=== PATIENT | male | born 1955 | race Caucasian/White ===

== ENCOUNTER 2020-10-17 13:59 | Emergency (ER) | payer MEDICARE, SELFPAY ==
[2020-10-17 14:06] VITALS: BP 162/104; PULSE 75; RESP 15; TEMP 36.5; O2SAT 98; BMI 30.1
--- NOTE | 2020-10-17 14:52 | ECG_ITS ---
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 Measurements Intervals [place] Rate: 62 P: 111 [place]: 191 QRS: 78 QRSD: 98 T: 55 QT: 405 QTc: 413 Interpretive Statements ELECTRONIC ATRIAL PACEMAKER Compared to ECG 07/15/2014 12:25:38 Sinus rhythm no longer present Electronically Signed On 10-19-2020 8:00:01 CDT by Joe Zacarias M.D. [email or web address] coast veterans health care systemTraversa Therapeuticsselect medical clevel[facility] clinic rehabilitation hospital, beachwoodHero Card Management AS/store/OM/[id number]/[id number]
--- NOTE | 2020-10-17 15:21 | XRR_ITS ---
PROCEDURE INFORMATION: Exam: XR Chest Exam date and time: 10/17/2020 3:44 PM Age: 65 years old Clinical indication: Cough TECHNIQUE: Imaging protocol: XR of the chest. Views: 1 view. COMPARISON: CR Chest 2 views* [id number] 05/24/2016 11:23 AM FINDINGS: Tubes, catheters and devices: Left chest ICD. Lungs: Unremarkable. No consolidation. Pleural spaces: Unremarkable. No pleural effusion. No pneumothorax. Heart/Mediastinum: Unremarkable. No cardiomegaly. Bones/joints: Unremarkable. XR/XR chest 1V portable [id number] IMPRESSION: No acute findings.
--- NOTE | 2020-10-17 15:22 | ED_ITS ---
HPI - General Adult General: Chief complaint: General Medical Stated complaint: FEELING FAINT THEN THREW UP Time Seen by Provider: 10/17/20 15:13 Source: patient, family, RN notes reviewed and old records reviewed Limitations: no limitations History of Present Illness: HPI narrative: This patient is a 65-year-old male who presents to the emergency department for acute dizziness. 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 Patient denies falling or passing out. But he states he felt really felt like he would. Patient states after a few minutes of just rest he is back to normal and feeling okay patient has no complaints at this time. However he is concerned because he does have a history of a pacemaker. We will do medical evaluation treat as needed Onset (ago): hour(s) Pain Consistency: intermittent Associated symptoms: Deny chest pain, dyspnea, headache(s), nausea, rash, palpitations or vomiting Review of Systems General: Reports: 10 or more systems reviewed and unremarkable except in HPI and below Const: Denies: fever(s), chills, body aches or fatigue Eyes: Denies: change in vision or blurry vision ENMT: Denies: throat pain, hoarseness or mouth pain Card: Denies: chest pain or palpitations Resp: Denies: dyspnea GI: Denies: nausea or vomiting : Denies: flank pain, dysuria, urinary frequency, urinary urgency or urinary hesitancy Musc: Denies: neck pain, back pain, extremity pain, extremity swelling, joint pain, joint swelling, joint redness, joint warmth or limited range of motion Skin/Breast: Denies: rash Neuro: Reports: dizziness; Denies: headache(s) Psych: Denies: anxiety or depression PFSH ED PFSH: Medical History Essential hypertension Sick sinus syndrome Social History Smoking and tobacco status: never smoked Alcohol intake: never Physical Exam Const: COMMON NORMALS: no acute distress, average body habitus, patient oriented x3, no limitations, healthy appearing, alert and well nourished HENMT: COMMON NORMALS: normocephalic, atraumatic, hearing grossly normal bilaterally, external ears normal, EAC's normal, TM's normal bilaterally, Normal external nose present, Normal nasal mucous membranes and turbinates present, moist oral mucous membranes, oropharynx normal, dentition normal and gingiva normal HEAD & SCALP: normocephalic and atraumatic NOSE: Normal external nose present and Normal nasal mucous membranes and turbinates present EXTERNAL EAR: Yes external ears normal EXTERNAL AUDITORY CANAL: EAC's normal TYMPANIC MEMBRANE: TM's normal bilaterally Neck/C-Spine: COMMON NORMALS: full ROM, no lymphadenopathy, supple, no meningeal signs, no JVD, Thyroid normal and No carotid bruits THYROID: Thyroid normal Chest: COMMONS NORMALS: normal inspection of the chest, normal palpation of entire chest wall, normal inspection of the breasts and normal palpation of the breasts Breast/axilla inspection: Yes normal inspection of the breasts BREAST/AXILLA PALPATION: Yes normal palpation of the breasts Resp: COMMON NORMALS: normal respiratory effort, No retractions, No use of accessory muscles, clear to auscultation bilaterally and percussion normal AUSCULTATION: clear to auscultation bilaterally PERCUSSION: percussion normal Cardio: COMMON NORMALS: no JVD, regular rate, regular rhythm, S1 normal heart sound present, S2 normal heart sound present, No gallops present (Cardio), No clicks present (Cardio), No murmurs present (Cardio), No rub (Cardio) and Peripheral pulses 2+ throughout RATE: regular rate RHYTHM: regular rhythm HEART SOUNDS: S1 normal heart sound present and S2 normal heart sound present PERIPHERAL PULSES: Peripheral pulses 2+ throughout GI: COMMON NORMALS: Normal to inspection, nondistended, normoactive bowel sounds present, Soft to palpation, non-tender, No hepatosplenomegaly present, no masses and no bruits PALPATION: Yes Soft to palpation and Yes No hepatosplenomegaly present : COMMON NORMALS: Yes no CVA tenderness BLADDER/KIDNEY EXAM: Yes no CVA tenderness Back/Pelvis: COMMON NORMALS: no CVA tenderness, thoracic and lumbar spine normal to inspection, no thoracic nor lumbar tenderness, thoraco-lumbar ROM normal and straight leg raise negative bilaterally Extremity: COMMON NORMALS: normal to inspection, full ROM, capillary refill normal, no joint enlargement, no clubbing, cyanosis or edema, no calf tenderness and no pedal edema Neuro: COMMON NORMALS: patient oriented x3 SENSORIUM/ORIENTATION: Yes alert MENINGEAL SIGNS: Yes no meningeal signs Course Reevaluation(s): Reevaluation #1: Negative evaluation in the emergency department. Patient still has no complaints. Patient describes orthostatic dizziness. Patient given instructions encourage p.o. fluids continue home medications and follow-up with PCP. Patient states understanding he was discharged home. Time: 17:37 Vital Signs: Vital signs: Vital Signs Temperature 97.7 F 10/17/20 14:06 Pulse Rate 64 10/17/20 16:55 Respiratory Rate 15 10/17/20 16:01 Blood Pressure 142/90 10/17/20 16:55 Pulse Oximetry 97 10/17/20 16:01 MDM - General Adult MDM Narrative: Medical decision making narrative: Patient presented to the emergency department description similar to orthostasis. Was bending over in a flower bed and got up and became profoundly dizzy sweating and vomited. Patient denies loss of consciousness. Patient had complete resolution of symptoms prior to arrival and continues to have normal evaluation with no symptoms. Differential Diagnosis: Differential Diagnosis: Orthostatic dizziness. Vertigo. Medical Records: Attestation: I reviewed the patient's medical records. Lab Data: Attestation: I reviewed the patient's lab results. Labs: Lab Results 10/17/20 10/17/20 10/17/20 Range/Units 15:55 15:55 15:55 WBC 9.6 (4.0-10.0) 10^3/ uL RBC 5.49 H (4.1-5.3) 10^6/u L Hgb 17.1 H (11.7-16.6) g/dL Hct 50.3 (42.0-52.0) % MCV 91.6 (80-94) fL MCH 31.1 (28.0-34.0) pg MCHC 34.0 (30.0-36.0) g/dL RDW 13.1 (12.1-15.1) % Plt Count 184 (130-400) 10^3/c mm MPV 9.7 (7.4-10.4) fL Neut % (Auto) 72.7 % Lymph % (Auto) 17.7 % [place] % (Auto) 7.4 % Eos % (Auto) 1.5 % Baso % (Auto) 0.4 % Neut # (Auto) 6.96 (1.8-7.7) 10^3/u L Lymph # (Auto) 1.7 (0.8-4.8) 10^3/u L [place] # (Auto) 0.7 (0.2-0.9) 10^3/u L Eos # (Auto) 0.1 (0.0-0.8) 10^3/u L Baso # (Auto) 0.0 (0.0-0.1) 10^3/u L Nucleated RBC % (a uto) 0 % Nucleated RBCs # 0.0 /100WBC Sodium 140 (136-145) mmol/L Potassium 3.9 (3.5-5.1) mmol/L Chloride 104 (98-107) mmol/L Carbon Dioxide 25 (22-29) mmol/L Anion Gap 14.9 (5-19) BUN 12 (8-23) mg/dL Creatinine 1.2 (0.7-1.2) mg/dL GFR Calculation 60.8 L (90-130) mL/min Glucose 98 (65-115) mg/dL Calculated Osmolal ity 290 (285-295) mOsm/k g Calcium 9.2 (8.5-10.5) mg/dL Total Bilirubin 2.0 H (0.15-1.2) mg/dL AST 30 (0-40) U/L ALT 60 H (0-41) U/L Alkaline Phosphata se 93 (40-130) IU/L Troponin T Baselin e 7 (0-15) ng/L Total Protein 7.7 (6.6-8.7) g/dL Albumin 4.5 (3.5-5.2) g/dL Globulin 3.2 (1.3-4.6) g/dL Lipase 22 (13-60) U/L Urine Color (Yellow) Urine Appearance (CLEAR) Urine pH (5-7) Ur Specific Gravit y (1.005-1.030) Urine Protein (Negative) Urine Glucose (UA) (Normal) Urine Ketones (Negative) Urine Blood (Negative) Urine Nitrate (Negative) Urine Bilirubin (Negative) Prot Sulfosalicyli c Acd Urine Urobilinogen (Negative) mg/dL Ur Leukocyte Adore ase (Negative) Urine RBC (0-2) /hpf Urine WBC (0-5) /hpf Ur Squamous Epith Cells (0-5) /hpf Amorphous Sediment Urine Bacteria (NONE) /hpf Hyaline Casts /lpf Urine Mucus /hpf 10/17/20 10/17/20 Range/Units 16:20 16:20 WBC (4.0-10.0) 10^3/ uL RBC (4.1-5.3) 10^6/u L Hgb (11.7-16.6) g/dL Hct (42.0-52.0) % MCV (80-94) fL MCH (28.0-34.0) pg MCHC (30.0-36.0) g/dL RDW (12.1-15.1) % Plt Count (130-400) 10^3/c mm MPV (7.4-10.4) fL Neut % (Auto) % Lymph % (Auto) % [place] % (Auto) % Eos % (Auto) % Baso % (Auto) % Neut # (Auto) (1.8-7.7) 10^3/u L Lymph # (Auto) (0.8-4.8) 10^3/u L [place] # (Auto) (0.2-0.9) 10^3/u L Eos # (Auto) (0.0-0.8) 10^3/u L Baso # (Auto) (0.0-0.1) 10^3/u L Nucleated RBC % (a uto) % Nucleated RBCs # /100WBC Sodium (136-145) mmol/L Potassium (3.5-5.1) mmol/L Chloride (98-107) mmol/L Carbon Dioxide (22-29) mmol/L Anion Gap (5-19) BUN (8-23) mg/dL Creatinine (0.7-1.2) mg/dL GFR Calculation (90-130) mL/min Glucose (65-115) mg/dL Calculated Osmolal ity (285-295) mOsm/k g Calcium (8.5-10.5) mg/dL Total Bilirubin (0.15-1.2) mg/dL AST (0-40) U/L ALT (0-41) U/L Alkaline Phosphata se (40-130) IU/L Troponin T Baselin e (0-15) ng/L Total Protein (6.6-8.7) g/dL Albumin (3.5-5.2) g/dL Globulin (1.3-4.6) g/dL Lipase (13-60) U/L Urine Color Dark yellow Cancelled (Yellow) Urine Appearance Clear Cancelled (CLEAR) Urine pH 5 Cancelled (5-7) Ur Specific Gravit y 1.025 Cancelled (1.005-1.030) Urine Protein Trace Cancelled (Negative) Urine Glucose (UA) Norm Cancelled (Normal) Urine Ketones 1+ H Cancelled (Negative) Urine Blood Neg Cancelled (Negative) Urine Nitrate Negative Cancelled (Negative) Urine Bilirubin 1+ H Cancelled (Negative) Prot Sulfosalicyli c Acd Cancelled Urine Urobilinogen Norm Cancelled (Negative) mg/dL Ur Leukocyte Adore ase Negative Cancelled (Negative) Urine RBC None (0-2) /hpf Urine WBC 0-4 H (0-5) /hpf Ur Squamous Epith Cells None (0-5) /hpf Amorphous Sediment Not Reportable Urine Bacteria Trace (NONE) /hpf Hyaline Casts 5-10 H /lpf Urine Mucus 2+ /hpf Imaging Data^: CXR: Attestation: I personally reviewed and interpreted this imaging study as follows: Radiologist's impression: IMPRESSION: No acute findings. EKG Data^: EKG 1: Attestation: I personally reviewed and interpreted this EKG as follows: EKG interpretation date: 10/17/20 EKG interpretation time: 15:55 Prior EKG tracings: not available for review Interpretation: Paced rhythm heart rate 62 nondiagnostic Computer generated interpretation: Chest X-Ray 10/17/20 15:21 IMPRESSION: No acute findings. Discharge Plan Discharge Patient Disposition: Home Clinical Impression: Orthostatic dizziness Condition: Stable Prescriptions: No Action omeprazole 20 mg capsule,delayed release(DR/EC) 20 mg PO DAILY RF: 0 acetaminophen [Tylenol 8 Hour] 650 mg tablet extended release 650 mg PO Q12H PRN (Reason: fever or pain) RF: 0 Zyrtec 10 mg capsule 10 mg PO DAILY RF: 0 atorvastatin 40 mg tablet 40 mg PO EVERY OTHER DAY RF: 0 nystatin-triamcinolone Cream 1 applic topical DAILY PRN (Reason: Skin Irritation) RF: 0 phenazopyridine [Pyridium] 100 mg tablet 100 mg PO TID PRN (Reason: urinary pain) RF: 0 Discharge Orders: Discharge ED (Routine); Ordered 10/17/20 Ordered By: Amadeo Martinez Referrals: Jolanta Dupont MD [Primary Care Provider] - Discharge Diet: Advance as tolerated Discharge Activity: Resume usual activity Patient Instructions: Opioid Safety Activity Restrictions/Additional Instructions: Patient given instructions encourage p.o. fluids continue home medications and follow-up with PCP Coding Level of Care Code ED Enrollment Clerk for Chg Fwd Exam Comprehensive
[2020-10-17 16:01] VITALS: BP 151/99; PULSE 61; RESP 15; O2SAT 97
[2020-10-17 16:08] LABS: Basophils % 0.4 %; Eosinophils # 0.1 10^3/uL (0.0-0.8); Eosinophils % 1.5 %; Hematocrit 50.3 % (42.0-52.0); Hemoglobin 17.1 g/dL (11.7-16.6); Lymphocytes # 1.7 10^3/uL (0.8-4.8); Lymphocytes % 17.7 %; Mean Corpuscular Hemoglobin 31.1 pg (28.0-34.0); Mean Corpuscular Volume 91.6 fL (80-94); Mean Platelet Volume 9.7 fL (7.4-10.4); Monocytes # 0.7 10^3/uL (0.2-0.9); Monocytes % 7.4 %; Neutrophils # 6.96 10^3/uL (1.8-7.7); Neutrophils % 72.7 %; Nucleated Red Blood Cells % 0 %; Platelet Count 184 10^3/cmm (130-400); Red Blood Count 5.49 10^6/uL (4.1-5.3); Red Cell Distribution Width 13.1 % (12.1-15.1); White Blood Count 9.6 10^3/uL (4.0-10.0)
[2020-10-17 16:25] LABS: Alanine Aminotransferase 60 U/L (0-41); Albumin Level 4.5 g/dL (3.5-5.2); Alkaline Phosphatase 93 IU/L (40-130); Anion Gap 14.9 (5-19); Aspartate Amino Transferase 30 U/L (0-40); Blood Urea Nitrogen 12 mg/dL (8-23); Calcium 9.2 mg/dL (8.5-10.5); Carbon Dioxide 25 mmol/L (22-29); Chloride 104 mmol/L (98-107); Creatinine Clr Calc Pharmacy 75.3813; Globulin 3.2 g/dL (1.3-4.6); Glomerular Filtration Rate 60.8 mL/min (90-130); Glucose 98 mg/dL (65-115); Lipase 22 U/L (13-60); Osmolality Calculated 290 mOsm/kg (285-295); Potassium 3.9 mmol/L (3.5-5.1); Sodium 140 mmol/L (136-145); Total Protein 7.7 g/dL (6.6-8.7)
[2020-10-17] MEDS: sodium chloride 0.9% 500 ML IV (16:25)
[2020-10-17 16:26] LABS: Troponin(5th) Baseline 7 ng/L (0-15)
[2020-10-17 16:46] LABS: Add Urine Microscopic? YES; Bilirubin Urine 1+ (Negative); Blood Urine Neg (Negative); Glucose Urine UA Norm (Normal); Ketones Urine 1+ (Negative); Leukocyte Esterase Urine Negative (Negative); Nitrate Urine Negative (Negative); Protein Urine Trace (Negative); Specific Gravity, Urine 1.025 (1.005-1.030); Urine Appearance Clear (CLEAR); Urine Color Dark Yellow (Yellow); Urobilinogen Urine Norm (Negative); pH Urine 5 (5-7)
[2020-10-17 16:47] LABS: Add Urine Culture? No; Bacteria Urine TRACE /hpf; Mucus Urine 2+ /hpf; WBC Urine 0-4 /hpf (0-5)
[2020-10-17 16:55] VITALS: BP 142/90; BP 148/96; BP 159/102; PULSE 63; PULSE 64; PULSE 73
[2020-10-17 17:57] VITALS: BP 160/108; PULSE 84; RESP 16; O2SAT 96
== END 2020-10-17 17:58 | disposition home or self-care (01) ==
PROVIDERS: Nurse Practitioner Family; Emergency Provider Emergency Medicine; PCP Internal Medicine Cardiovascular Disease
DX: R42 Dizziness and giddiness (principal); I10 Essential (primary) hypertension
CPT/HCPCS: 71045; 80053; 81001; 83690; 84484; 85025; 93005; 96360; 99284; J7040

== ENCOUNTER 2020-11-25 16:45 | Inpatient (IN) | payer MEDICARE, SELFPAY ==
[2020-11-25] VITALS (15 sets, daily range): BP systolic 98–165; BP diastolic 60–99; PULSE 60–102; RESP 10–22; TEMP 35.8–36.6; O2SAT 92–99; BMI 29.9
--- NOTE | 2020-11-25 17:55 | XRR_ITS ---
PROCEDURE INFORMATION: Exam: XR Chest Exam date and time: 11/25/2020 5:55 PM Age: 65 years old Clinical indication: Pain; Left-sided; Prior surgery; Surgery type: Pace maker; Additional info: Left sided chest pain/tightness x yesterday. TECHNIQUE: Imaging protocol: XR of the chest. Views: 1 view. Total images: 1 COMPARISON: CR XR chest 1V portable [id number] 10/17/2020 3:35 PM FINDINGS: Tubes, catheters and devices: Pacemaker. Lungs: No visible active interstitial or alveolar airspace disease. Pleural spaces: Unremarkable. No pleural effusion. No pneumothorax. Heart/Mediastinum: Cardiac structures and configuration unremarkable for age and stable. Bones/joints: Unremarkable. XR/XR chest 1V portable [id number] IMPRESSION: Nonacute.
--- NOTE | 2020-11-25 17:55 | ECG_ITS ---
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 Measurements Intervals [place] Rate: 63 P: 116 MD: 188 QRS: 42 QRSD: 89 T: 15 QT: 378 QTc: 388 Interpretive Statements ELECTRONIC ATRIAL PACEMAKER ABNORMAL RHYTHM ECG Compared to ECG 10/17/2020 15:55:16 No significant changes Electronically Signed On 11-26-2020 22:59:52 CDT by Sherlyn Donald M.D. https://[employer]Tactonic Technologiesh. c. watkins memorial hospitalESC Companyohiohealth southeastern medical centerNegevtech/store/NU/[id number] f
--- NOTE | 2020-11-25 18:48 | ED_ITS ---
HPI - Chest Pain General: Chief Complaint: Chest Pain Stated Complaint: chest pain Time Seen by Provider: 11/25/20 18:22 Source: patient Mode of arrival: ambulatory Limitations: no limitations History of Present Illness: HPI narrative: 65-year-old male states he been having exertional chest pain over the last 2 days. States today is outside working and started having pain in his left chest with radiation to his left arm that was a 5 out of 10. States that once he rests his pain will go away. He states that when he walked back to the room he started having pain again but it since subsided and he is now pain-free. Denies any shortness of breath. MD complaint: chest pain Associated symptoms: Deny abdominal pain, dyspnea, fever(s), nausea or vomiting Review of Systems Const: Denies: fever(s), chills, body aches or change in appetite Eyes: Denies: blurry vision or eye discomfort ENMT: Denies: throat pain or dental pain Card: Reports: chest pain Resp: Denies: dyspnea GI: Denies: abdominal pain, nausea, vomiting or diarrhea : Denies: dysuria Musc: Denies: neck pain or back pain Skin/Breast: Denies: rash Neuro: Denies: headache(s) Psych: Denies: depression [place]/Lymph: Denies: easy bruising All/Imm: Denies: urticaria PFSH ED PFSH: Medical History Essential hypertension Sick sinus syndrome Social History Smoking and tobacco status: never smoked Alcohol intake: never Physical Exam Const: COMMON NORMALS: no acute distress, patient oriented x3 and healthy appearing HENMT: COMMON NORMALS: normocephalic and atraumatic HEAD & SCALP: normocephalic and atraumatic Eye: COMMON NORMALS: Equal, round and reactive pupils present and EOMs intact bilaterally PUPIL: Yes Equal, round and reactive pupils present Neck/C-Spine: COMMON NORMALS: full ROM and supple Chest: COMMONS NORMALS: normal inspection of the chest and normal palpation of entire chest wall Resp: COMMON NORMALS: normal respiratory effort, No retractions, No use of accessory muscles and clear to auscultation bilaterally AUSCULTATION: clear to auscultation bilaterally Cardio: COMMON NORMALS: regular rate, regular rhythm and No murmurs present (Cardio) RATE: regular rate RHYTHM: regular rhythm GI: COMMON NORMALS: Normal to inspection, nondistended, normoactive bowel sounds present, Soft to palpation, non-tender and no masses PALPATION: Yes So ft to palpation Extremity: COMMON NORMALS: normal to inspection and full ROM Neuro: COMMON NORMALS: patient oriented x3, moves all extremities and no focal motor deficits Psych: COMMON NORMALS: mental status grossly normal, Normal thought process present and cooperative THOUGHT PROCESS: Normal thought process present Skin: COMMON NORMALS: no rashes or lesions noted and no wounds GENERAL SKIN EXAM: no rashes or lesions noted Course Vital Signs: Vital signs: Vital Signs Temperature 97.9 F 11/25/20 16:58 Pulse Rate 60 11/25/20 19:58 Respiratory Rate 22 H 11/25/20 19:58 Blood Pressure 98/60 11/25/20 19:58 Pulse Oximetry 99 11/25/20 19:58 MDM - Chest Pain MDM Narrative: Medical decision making narrative: Patient presents with chest pain. When I originally saw him he was pain-free and resting comfortably and his initial EKG was normal. Starting at 730's started complaint of chest pain and was having nausea and diaphoresis. I had nurse repeat EKG that is changed from previous EKG and now has ST elevation in V2 and V3 and a STEMI alert was called. Dr. 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 Patient given nitro and morphine his pain is improved but now a 3 out of 10. Patient given heparin and Plavix as well. Lab Data: Labs: Lab Results 11/25/20 11/25/20 11/25/20 Range/Units 19:21 19:21 19:21 WBC 5.7 (4.0-10.0) 10^3/ uL RBC 5.31 H (4.1-5.3) 10^6/u L Hgb 16.6 (11.7-16.6) g/dL Hct 49.1 (42.0-52.0) % MCV 92.5 (80-94) fL MCH 31.3 (28.0-34.0) pg MCHC 33.8 (30.0-36.0) g/dL RDW 13.1 (12.1-15.1) % Plt Count 197 (130-400) 10^3/c mm MPV 9.6 (7.4-10.4) fL Neut % (Auto) 49.4 % Lymph % (Auto) 37.6 % [place] % (Auto) 8.3 % Eos % (Auto) 3.4 % Baso % (Auto) 1.1 % Neut # (Auto) 2.80 (1.8-7.7) 10^3/u L Lymph # (Auto) 2.1 (0.8-4.8) 10^3/u L [place] # (Auto) 0.5 (0.2-0.9) 10^3/u L Eos # (Auto) 0.2 (0.0-0.8) 10^3/u L Baso # (Auto) 0.1 (0.0-0.1) 10^3/u L Nucleated RBC % (a uto) 0 % Nucleated RBCs # 0.0 /100WBC Sodium 138 (136-145) mmol/L Potassium 4.3 (3.5-5.1) mmol/L Chloride 104 (98-107) mmol/L Carbon Dioxide 23 (22-29) mmol/L Anion Gap 15.3 (5-19) BUN 16 (8-23) mg/dL Creatinine 1.1 (0.7-1.2) mg/dL GFR Calculation 67.2 L (90-130) mL/min Glucose 95 (65-115) mg/dL Calculated Osmolal ity 287 (285-295) mOsm/k g Calcium 9.1 (8.5-10.5) mg/dL Total Bilirubin 1.3 H (0.15-1.2) mg/dL AST 32 (0-40) U/L ALT 58 H (0-41) U/L Alkaline Phosphata se 92 (40-130) IU/L Troponin T Baselin e 53 H (0-15) ng/L Total Protein 7.3 (6.6-8.7) g/dL Albumin 4.5 (3.5-5.2) g/dL Globulin 2.8 (1.3-4.6) g/dL Imaging Data^: CXR: Attestation: I personally reviewed and interpreted this imaging study as follows: My impression: no acute abnormality EKG Data^: EKG 1: Attestation: I personally reviewed and interpreted this EKG as follows: EKG interpretation date: 11/25/20 EKG interpretation time: 17:03 Interpretation: paced hr [address] or t wave abnormalities qrs 89 qtc 385 EKG 2: Attestation: I personally reviewed and interpreted this EKG as follows: EKG interpretation date: 11/25/20 EKG interpretation time: 19:32 Interpretation: paced rhyhthm hr 60 st elevation in v1 and v2 Critical Care Time Critical Care Time: Critical Care Time: Yes Total Critical Care Time: 35 Attestation: This case had a high probability of a clinically significant, sudden, or life threatening deterioration of this patient's condition which required my full and direct attention, intervention and personal management. Discharge Plan Discharge Patient Disposition: Admitted As Inpatient Clinical Impression: ST elevation myocardial infarction (STEMI) Qualifiers: Involved coronary artery: unspecified coronary artery Qualified Code(s): I21.3 - ST elevation (STEMI) myocardial infarction of unspecified site Condition: Stable Coding Level of Care Code ED Shingle Inspector for Chg Fwd Exam Comprehensive
[2020-11-25] MEDS: aspirin 81 mg Chew Tablet 324 MG PO (19:16)
[2020-11-25] MEDS: nitroglycerin 0.4 mg sublingual Tablet SUBLINGUAL (19:27)
[2020-11-25] MEDS: ondansetron 2 mg/ML SDV 2 mL 4 MG IVP (19:27)
[2020-11-25 19:28] LABS: Basophils # 0.1 10^3/uL (0.0-0.1); Basophils % 1.1 %; Eosinophils # 0.2 10^3/uL (0.0-0.8); Eosinophils % 3.4 %; Hematocrit 49.1 % (42.0-52.0); Hemoglobin 16.6 g/dL (11.7-16.6); Lymphocytes # 2.1 10^3/uL (0.8-4.8); Lymphocytes % 37.6 %; Mean Corpuscular HGB Conc 33.8 g/dL (30.0-36.0); Mean Corpuscular Hemoglobin 31.3 pg (28.0-34.0); Mean Corpuscular Volume 92.5 fL (80-94); Mean Platelet Volume 9.6 fL (7.4-10.4); Monocytes # 0.5 10^3/uL (0.2-0.9); Monocytes % 8.3 %; Neutrophils % 49.4 %; Nucleated Red Blood Cells % 0 %; Platelet Count 197 10^3/cmm (130-400); Red Blood Count 5.31 10^6/uL (4.1-5.3); Red Cell Distribution Width 13.1 % (12.1-15.1); White Blood Count 5.7 10^3/uL (4.0-10.0)
[2020-11-25 19:44] LABS: Alanine Aminotransferase 58 U/L (0-41); Albumin Level 4.5 g/dL (3.5-5.2); Alkaline Phosphatase 92 IU/L (40-130); Anion Gap 15.3 (5-19); Aspartate Amino Transferase 32 U/L (0-40); Blood Urea Nitrogen 16 mg/dL (8-23); Calcium 9.1 mg/dL (8.5-10.5); Carbon Dioxide 23 mmol/L (22-29); Chloride 104 mmol/L (98-107); Globulin 2.8 g/dL (1.3-4.6); Glomerular Filtration Rate 67.2 mL/min (90-130); Glucose 95 mg/dL (65-115); Osmolality Calculated 287 mOsm/kg (285-295); Potassium 4.3 mmol/L (3.5-5.1); Sodium 138 mmol/L (136-145); Total Bilirubin 1.3 mg/dL (0.15-1.2); Total Protein 7.3 g/dL (6.6-8.7)
[2020-11-25 19:45] LABS: Troponin(5th) Baseline 53 ng/L (0-15)
--- NOTE | 2020-11-25 19:52 | XACV_ITS ---
Ht: 183 cm Wt: 100 kg BSA: 2.28 m2 Gender: Male : 1955 Exam Priority: Routine Procedure(s): Procedure Description: Diagnostic procedure Procedure Description: PCI procedure Procedure Description: Drug Eluting Coronary Stent Procedure Description: PTCA Procedure Description: Miscellaneous Procedure Description: ACT Procedure Description: Coronary Angiography Diagnostic Cath Status: Emergency Diagnostic Findings * Circumflex has no significant disease. * Right Coronary Artery has minor luminal irregularities. * Mid Left Anterior Descending: total thrombotic occlusion, ROMAINE: [address] for acute ST elevation PA. * Left Main has no disease. * Coronary angiography shows right dominance. PCI Status: Emergency PCI Indication: STEMI - Immediate PCI for STEMI Interventional Findings * Procedure details: We engaged left main artery with a XB 3.5 guide catheter. IV heparin was administered to maintain an ACT above 250 seconds. A 0.014 run-through guidewire was used to cross the stenosis and was placed in distal LAD. A 2.5 x 12 mm semicompliant balloon was used to predilate the stenosis in the mid LAD. This was followed by placement of 3.0 x 30 mm resolute [place] drug-eluting stent. There was some haziness noted at the distal edge of the stent. We placed a second stent measuring 3.0x12mm overlapping with the first one. We postdilated the proximal part of stent with 3.5 x 6 mm NC balloon. At this time final angiogram was performed that showed excellent stent expansion, ROMAINE-3 flow and no residual stenosis. Guidewire and guide catheter were removed. Angioseal was deployed to achieve hemostasis. Patient left the Order Picker/Assembler in a stable condition. * Mid Left Anterior Descendin% stenosis treated with a AB TREK 2.50X12 RX BALLOON, MDT R CESIA 3.0X30 ED, MDT R CESIA 3.0X12 ED, and MDT CAITLYN EUPHORA RX [id number] BALLOON. 0% residual stenosis, ROMAINE: 3 flow. Conclusions 1. There is total thrombotic occlusion of mid LAD. This was the culprit for the acute STEMI. 2. Mid Left Anterior Descending was treated with a Balloon, Drug Eluting Stent, Drug Eluting Stent, and Balloon. Recommendations * Transfer to ICU. * Aspirin and plavix for atleast 1 year. * High intensity statin therapy. * Cardiac rehab referral. * Outpatient cardiology follow up in 4 weeks. Interventional RX Recommendation: PCI w/o planned CABG Diagnostic RX Recommendation: PCI w/o planned CABG Anticoagulation: Heparin Pressures Phase:Rest AO : 137 / 88 ( 110 ) @ 3:57:51 PM 119 / 80 ( 99 ) @ 3:57:51 PM Clinical Evaluation EBL: 5mL-10mL Procedural Details Procedure Consent Obtained. Pre-Procedure Time Out. Identified patient by full name and date of as verbalized by the patient/guarantor. Does the consent match the physician's order: N/A Emergent. Accurate & Complete Informed Consent: N/A Emergent. Inpatient/Outpatient History & Physical on Chart: N/A Emergent. If H&P is completed, is and addenduem needed: N/A Emergent; If yes, is the addendum complete: N/A Emergent. Visualize and Verify Site with Patient/Guarantor: N/A. Relevant Radiology Images available: N/A Emergent. Pre-op teaching completed and patient verbalized understanding. The risks, benefits, and alternatives of sedation and/or procedure were discussed by physician. The patient agrees to continue. Procedure started. [facility] Clinical Fraility Score: 3: Managing Well. Order Picker/Assembler Indications: ACS <= 24 hours. Chest Pain Symptom Assessment: Typical Angina Symptoms. Cardiovascular Instability: Yes, if yes, Hemodynamic Instability. Correct patient, site and procedure confirmed by cath team. PERRLA. Strong, equal hand harvesting supervisor bilaterally. Lungs clear x 5 lobes. IV Site on Arrival: 18 gauge in the right anticubital. IV Site on Arrival: 20 gauge in the left anticubital. Oxygen started at 3liters/min via nasal canula. bilateral groins was prepped with chloroprep then draped in the usual sterile fashion. Physician arrived. Physician scrubbed in. Immediate Pre-Procedure Time Out. Correct Patient: Yes; Correct Procedure: Yes; Correct Site: Yes; Correct Patient Position: Yes; Correct Supplies: Yes; Dried Flammable Prep: Yes; Blood Products Available: N/A;. Lidocaine 1% infiltrated to the right groin. Arterial access obtained with micropuncture set. Inventory is CRD 6 FR XB 3.5 GUIDE. 6 albanian XB 3.5 guide catheter was inserted over the wire. Pt arrived with AP pads on. Runthrough guidewire was advanced through the guide catheter to lesion in the prox LAD. Inflation number : 1 A AB TREK 2.50X12 RX BALLOON was prepped and advanced across the Mid LAD , then inflated to 12 FER for 0:17 seconds. Inflation number: 2 The AB TREK 2.50X12 RX BALLOON was reinflated across the Mid LAD, to 12 FER for 0:13 seconds. Balloon out. Results checked. Inflation Number : 3 A MDT R CESIA 3.0X30 ED -Lot Number# [id number] exp date 03/15/2022 was prepped and advanced across the Mid LAD. The stent was deployed at 12 FER for 0:33 seconds. 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 Stent balloon out over wire. Results checked. Inflation Number : 4 A MDT R CESIA 3.0X12 ED -Lot Number# [id number] exp date 08/10/2022 was prepped and advanced across the Mid LAD. The stent was deployed at 12 FER for 0:17 seconds. Stent balloon out over wire. Inflation number : 5 A MDT NC EUPHORA RX [id number] BALLOON was prepped and advanced across the Mid LAD , then inflated to 12 FER for 0:18 seconds. Inflation number: 6 The MDT NC EUPHORA RX [id number] BALLOON was reinflated across the Mid LAD, to 12 FER for 0:19 seconds. Inflation number: 7 The MDT NC EUPHORA RX [id number] BALLOON was reinflated across the Mid LAD, to 12 FER for 0:23 seconds. Balloon out. Results checked. Wire out. Guide catheter out. A CRD 5F JR4 Diagnostic Catheter was advanced over the wire and used for Left coronary angiography. Multiple views taken of right coronary artery. Catheter removed over the standard wire. A Right femoral angiogram was performed to determine safe placement of closure device. ACT drawn. Results 233 seconds. Therapeutic limits - pre-heparin administration 90-150 seconds and monitoring heparin during a vascular procedure >250 seconds. A Angio-Seal VIP ([place]) was successful obtaining hemostatsis at the Right Femoral artery insertion site. Angioseal placed without complications. No signs or symptoms of hematoma noted. Sterile dressing applied per usual sterile fashion. Post Procedure: Pulses reassessed and unchanged. Aggrastat stopped at this time. PERRLA. Strong, equal hand harvesting supervisor bilaterally. No VTE prophylaxis required. Medication's Wasted: Lidocaine 1% = 5 mL. Medication's Wasted: Nitro = 49.8 mg. Total IV fluids: 75 mL. Contrast type used: Omnipaque 300 mgI/mL, 500 mL bottle. Post-op diagnosis: stemi. Complications: none. Estimated blood loss: 5mL-10mL. Manual pressure held at access site. Procedure completed. Patient transferred by bed to ICU. Vital chart was stopped. Access Site Site: Right Femoral artery Sheath Size: 6 Fr Hemostasis Method: Angio-Seal VIP ([place]) Hemostasis Success: Successful Procedure Medications Start: 8:18 PM Stop: 8:18 PM Medication: Heparin Amount: 6000 units Route: I.V. Start: 8:15 PM Stop: 8:15 PM Medication: Versed Amount: 1 mg Route: I.V. Start: 8:15 PM Stop: 8:15 PM Medication: Fentanyl Amount: 25 mcg Start: 8:25 PM Stop: 8:25 PM Medication: Aggrastat 12.5 mg/250 mL Amount: 50 ml Route: I.V. bolus Start: 8:26 PM Stop: 8:26 PM Medication: Aggrastat 12.5 mg/250 mL Amount: 18 ml/hr Route: I.V. drip Start: 8:29 PM Stop: 8:29 PM Medication: Versed Amount: 1 mg Route: I.V. Start: 8:38 PM Stop: 8:38 PM Medication: Nitrogylcerin Amount: 200 mcg Route: I.C. Start: 8:40 PM Stop: 8:40 PM Medication: Fentanyl Amount: 25 mcg Route: I.V. Start: 8:45 PM Stop: 8:45 PM Medication: Fentanyl Amount: 25 mcg Route: I.V. I, the attending physician, have reviewed and verified all procedure medications. Yes, all medications given per verbal order History/Risk Factors Hypertension: No Dyslipidemia: No Peripheral Arterial Disease (PAD): No Myocardial Infarction (PA): No Obesity: No Renal Disease: No Prior Interventions PCI: No CABG: No Valve Surgery: No Report Signatures Finalized by Joe Zacarias MD on 12/03/2020 07:59 PM
--- NOTE | 2020-11-25 19:55 | ECG_ITS ---
[facility] Test Date: 2020-11-25 Pat Name: Ray Lopez Department: Room: ICU07 Gender: Male Advisory Intern: : 1955 Requested By: Hugo Blevins Order Number: [id number] Amanda MD: Sherlyn Donald M.D. Measurements Intervals [place] Rate: 60 P: 110 OR: 191 QRS: 58 QRSD: 92 T: 2 QT: 426 QTc: 428 Interpretive Statements ELECTRONIC ATRIAL PACEMAKER LOW QRS VOLTAGE [QRS DEFLECTION < 0.5/1.0 mV IN LIMB/CHEST LEADS] MARKED ST ELEVATION, CONSIDER ANTEROSEPTAL INJURY [MARKED ST ELEVATION W/O NORMALLY INFLECTED T WAVE IN V1-V4] Compared to ECG 11/25/2020 17:03:26 Low QRS voltage now present ST (T wave) deviation now present Myocardial infarct finding now present Electronically Signed On 11-28-2020 23:11:47 CDT by Sherlyn Donald M.D. [id number] padilla
[2020-11-25] MEDS: clopidogrel 300 mg Tablet (19:59)
[2020-11-25] MEDS: clopidogrel 300 mg Tablet PO (19:59)
[2020-11-25] MEDS: sodium chloride 0.9% 1,000 ML 999 ML IV (20:00)
[2020-11-25] MEDS: morphine 4 mg/mL SDV 1 mL IVP ×2 (20:01→20:02)
[2020-11-25] MEDS: heparin 5,000 unit/mL INJ 1 mL 4000 UNIT IVP (20:02)
--- NOTE | 2020-11-25 20:11 | PM.HP ---
Providers/Chief Complaint Primary Care Provider: Jolanta Dupont MD Chief Complaint: chest pain History of Present Illness Ray Lopez is a 65 year old male with past medical history of sick sinus syndrome status post pacemaker placement, tobacco abuse(chews tobacco) and hypertension who presented to the hospital with 2 days of on and off exertional chest pain. Initial EKG did not reveal ST elevations. He developed substernal severe chest pain in the ER along with diaphoresis and a repeat EKG showed ST elevation in septal/anterior leads. He was emergently taken to pharmaceutical laboratory technician that showed total thrombotic occlusion of the mid LAD. He underwent successful revascularization with ED x 2. Review of Systems Const: Denies: fever(s), chills, body aches or change in appetite Eyes: Denies: blurry vision or eye discomfort ENMT: Denies: throat pain or dental pain Card: Reports: chest pain Resp: Denies: dyspnea GI: Denies: abdominal pain, nausea, vomiting or diarrhea : Denies: dysuria Musc: Denies: neck pain or back pain Skin/Breast: Denies: rash Neuro: Denies: headache(s) Psych: Denies: depression Ayan/Lymph: Denies: easy bruising All/Imm: Denies: urticaria Medications/Allergies Home Medications Medication Instructions Recorded Confirmed Last Taken Type omeprazole 20 mg capsule,delayed 20 mg PO DAILY 12/15/19 11/25/20 11/25/20 History release atorvastatin 40 mg tablet 40 mg PO EVERY OTHER DAY tab 09/13/20 11/25/20 11/25/20 History cetirizine 10 mg capsule 10 mg PO DAILY 09/13/20 11/25/20 11/25/20 History nystatin-triamcinolone topical 1 applic TOPICAL DAILY PRN 09/13/20 11/25/20 Unknown History cream phenazopyridine 100 mg tablet 100 mg PO TID PRN 09/13/20 11/25/20 Unknown History meloxicam 7.5 mg PO DAILY 11/25/20 11/25/20 11/25/20 History Allergies Allergy/AdvReac Type Severity Reaction Status Date / Time No Known Allergies Allergy Verified 10/17/20 14:09 PFSH Acute PFSH: Medical History (Updated 11/26/20 @ 11:56 by Joe Zacarias M.D) Essential hypertension Hx of cardiac pacemaker Sick sinus syndrome Family History (Updated 11/26/20 @ 11:51 by Joe Zacarias M.D) Other Hypertension Social History Smoking and tobacco status: current every day smoker smokeless tobacco Alcohol intake: never Vitals/I&O/Wt Last Vital Signs Temp 97.9 F 11/25/20 16:58 Pulse 60 11/25/20 19:58 Resp 22 H 11/25/20 19:58 BP 98/60 11/25/20 19:58 Pulse Ox 99 11/25/20 19:58 Weight last 48 hrs Weight 221 lb Physical Exam Narrative: EXAM NARRATIVE: GENERAL: Patient is alert, awake and oriented x3. [] NECK: No jugular vein distension. [] HEENT: No cyanosis. No icterus. No pallor. [] HEART: Regular S1 and S2. No murmur, rub or gallop. [] LUNGS: Clear to auscultate bilaterally. [] ABDOMEN: Soft, nontender and nondistended. Positive bowel sounds. No guarding, rebound or tenderness. [] CENTRAL NERVOUS SYSTEM: Grossly nonfocal. [] EXTREMITIES: Lower extremities with 1+ edema bilaterally. Pulses palpable in the lower extremities, both dorsalis pedis and posterior tibial. [] Data : 11/26/20 03:47 11/26/20 03:47 A&P Assessment and plan (1) ST elevation myocardial infarction (STEMI): Status: Acute Qualifiers: Involved coronary artery: unspecified coronary artery Qualified Code(s): I21.3 - ST elevation (STEMI) myocardial infarction of unspecified site (2) Sick sinus syndrome: Status: Acute (3) Essential hypertension: Status: Acute (4) Hx of cardiac pacemaker: Status: Acute (5) Tobacco abuse: Status: Acute Patient had acute ST elevation [place]. Coronary angiogram demonstrated total thrombotic occlusion of mid LAD. He underwent successful revascularization with ED x2. Transfer to ICU Aspirin and Plavix for at least 1 year. High intensity statin therapy. ECHO ordered Will start beta ketan and ERIN inhibitor Attestations Medical Necessity Statement*: Care expected to cross 2 midnights. Patient had Acute STEMI S/P revascularization of LAD. Coding Level of Care Code Acute Biological Scientist for [facility] Diagnoses ST elevation myocardial infarction (STEMI) I21.3 Involved coronary artery: unspecified coronary artery Sick sinus syndrome I49.5 Essential hypertension I10 Hx of cardiac pacemaker Z95.0 Tobacco abuse Z72.0
[2020-11-25] MEDS: sodium chloride 0.9% 1,000 ML 75 ML IV (21:28)
--- NOTE | 2020-11-25 21:31 | PC.NURSE ---
Received report from ENMA Emanuel. Patient resting in bed eating a sandwich. Patient is s/p [facility] with PCI x2 to LAD via right femoral artery. Per report patient has angioseal placed to site. Dressing to site remains c,d,i with no s/s of bleeding or hematoma formation observed. Patient reports feeling much better than when he arrived to hospital. Denies any pain presently. No distress observed.
[2020-11-25] MEDS: atorvastatin 40 mg Tablet PO (22:50)
[2020-11-25] MEDS: metoprolol tartrate 25 mg Tablet 12.5 MG PO (22:50)
--- NOTE | 2020-11-25 22:53 | PC.NURSE ---
Patient doing well. Denies any pain at this time. Dressing to right groin remains c,d,i with no s/s of bleeding or hematoma formation. Pedal pulse palpable, pink color to lower extremity and warm to touch.
--- NOTE | 2020-11-25 23:55 | ECG_ITS ---
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 Measurements Intervals [place] Rate: 60 P: 200 NM: 199 QRS: 95 QRSD: 94 T: 48 QT: 426 QTc: 426 Interpretive Statements ELECTRONIC ATRIAL PACEMAKER BORDERLINE RIGHT AXIS DEVIATION [QRS AXIS > 90] LOW QRS VOLTAGE IN PRECORDIAL LEADS [QRS DEFLECTION < 1.0 mV IN CHEST LEADS] ABNORMAL RHYTHM ECG Compared to ECG 11/25/2020 19:32:21 ST (T wave) deviation no longer present Myocardial infarct finding no longer present Electronically Signed On 11-26-2020 23:12:02 CDT by Sherlyn Donald M.D. [id number]
[2020-11-26] VITALS (14 sets, daily range): BP systolic 112–160; BP diastolic 51–105; PULSE 60–63; RESP 12–18; TEMP 36.5–36.7; O2SAT 93–97
--- NOTE | 2020-11-26 | USCV_ITS ---
Ray Lopez Age: 65 Gender: M : 1955 Exam Date: 11/26/2020 07:18 Ordering Phys: Joe Zacarias M.D ([email or web address]) Technologist: Amada Mcguire Exam Location: [facility] [place] Indication: Post STEMI BP: 124 / 85 HR: 60 Rhythm: Sinus Technical Quality: Adequate MEASUREMENTS (Male / Female) Normal Values 2D ECHO LV Diastolic Diameter PLAX 4.3 cm 4.2 - 5.9 / 3.9 - 5.3 cm LV Systolic Diameter PLAX 2.7 cm LV Chamber Size 3.6 cm IVS Diastolic Thickness 1.4 cm 0.6 - 1.0 / 0.6 - 0.9 cm IVS Systolic Thickness 1.9 cm LVPW Diastolic Thickness 1.0 cm 0.6 - 1.0 / 0.6 - 0.9 cm LVPW Systolic Thickness 1.5 cm RV Chamber Size 3.4 cm LVOT Diameter 2.0 cm LV Ejection Fraction 2D Teich 68.2 % LV Ejection Fraction MOD 2C 65.8 % LV Ejection Fraction 2C AL 67.3 % LA Diameter 3.4 cm LA Width 3.5 cm LA Height 4.6 cm RA Width 2.8 cm RA Height 4.0 cm Aorta at Sinotubular Diameter 2.4 cm M-MODE LV Diastolic Diameter MM 5.2 cm 4.2 - 5.9 / 3.9 - 5.3 cm LV Systolic Diameter MM 3.9 cm LV Ejection Fraction MM Teich 51.3 % IVS Diastolic Thickness MM 1.1 cm 0.6 - 1.0 / 0.6 - 0.9 cm IVS Systolic Thickness MM 1.2 cm LVPW Diastolic Thickness MM 1.2 cm 0.6 - 1.0 / 0.6 - 0.9 cm LVPW Systolic Thickness MM 1.8 cm RV Diastolic Diameter MM 1.1 cm Aortic Annulus Diameter 3.4 cm LA Ao Ratio MM 1.1 MV E Point Septal Separation 0.4 cm DOPPLER AV Peak Velocity 108.0 cm/s LVOT Peak Velocity 73.0 cm/s AV Area Cont Eq vti 2.1 cm squared AV Area Cont Eq pk 2.1 cm squared MV Area PHT 4.6 cm squared Mitral E to A Ratio 1.4 MV E' Velocity 49.0 cm/s Mitral E to MV E' Ratio 12.3 Mitral E to LV E' Lateral Ratio 10.8 Mitral E to LV E' Septal Ratio 14.3 TR Peak Velocity 249.6 cm/s TR Peak Gradient 24.9 mmHg TR Mean Velocity 220.5 cm/s TR Mean Gradient 20.5 mmHg TR Velocity Time Integral 88.2 cm TV Peak E Velocity 57.0 cm/s Right Atrial Pressure 3.0 mmHg Pulmonary Artery Systolic Pressu 27.9 mmHg PV Peak Velocity 61.0 cm/s RV Acceleration Time 0.1 s RV Ejection Time 0.3 s RV AcT/ET 0.5 FINDINGS Left Ventricle Normal left ventricular size. LV systolic function is mildly reduced with EF of 45-50 %. Severe hypokinesis of the apical wall is seen. Diastolic function is abnormal Right Ventricle The right ventricle is normal in size and function. Right Atrium The right atrium is normal in size. Left Atrium The left atrium is normal in size. Mitral Valve Structurally normal mitral valve without significant stenosis or prolapse. There is trace mitral regurgitation. Aortic Valve Structurally normal aortic valve without significant sclerosis or stenosis. There is mild aortic regurgitation. Tricuspid Valve Structurally normal tricuspid valve without significant stenosis. Mild to moderate tricuspid regurgitation. RVSP is 35- 40mmHg. This is consistent with mild pulmonary hypertension Pulmonic Valve Structurally normal pulmonic valve without significant stenosis. There is trace pulmonic regurgitation. Pericardium Normal pericardium without effusion. Aorta Normal ascending aorta dimension. CONCLUSIONS LV systolic function is mildly reduced with EF of 45-50%. Severe hypokinesis of the apical wall Trace mitral regurgitation, mild aortic regurgitation and trace pulmonic regurgitation Mild to moderate tricuspid regurgitation. Mild pulmonary hypertension is noted Joe Zacarias MD (Electronically Signed) Final Date: 26 November 2020 21:12 S
[2020-11-26 04:47] LABS: Basophils # 0.1 10^3/uL (0.0-0.1); Basophils % 0.6 %; Eosinophils # 0.1 10^3/uL (0.0-0.8); Eosinophils % 1.7 %; Hematocrit 43.9 % (42.0-52.0); Hemoglobin 14.7 g/dL (11.7-16.6); Lymphocytes # 2.8 10^3/uL (0.8-4.8); Lymphocytes % 36.5 %; Mean Corpuscular HGB Conc 33.5 g/dL (30.0-36.0); Mean Corpuscular Hemoglobin 31.3 pg (28.0-34.0); Mean Corpuscular Volume 93.6 fL (80-94); Mean Platelet Volume 10.1 fL (7.4-10.4); Monocytes # 0.6 10^3/uL (0.2-0.9); Monocytes % 7.1 %; Neutrophils # 4.18 10^3/uL (1.8-7.7); Neutrophils % 53.7 %; Nucleated Red Blood Cells % 0 %; Platelet Count 174 10^3/cmm (130-400); Red Blood Count 4.69 10^6/uL (4.1-5.3); Red Cell Distribution Width 13.2 % (12.1-15.1); White Blood Count 7.8 10^3/uL (4.0-10.0)
[2020-11-26 05:01] LABS: Blood Urea Nitrogen 14 mg/dL (8-23); Calcium 8.4 mg/dL (8.5-10.5); Carbon Dioxide 23 mmol/L (22-29); Chloride 106 mmol/L (98-107); Glomerular Filtration Rate 84.7 mL/min (90-130); Glucose 104 mg/dL (65-115); Osmolality Calculated 287 mOsm/kg (285-295); Sodium 138 mmol/L (136-145)
[2020-11-26] MEDS: aspirin 81 mg EC Tablet PO (09:25)
[2020-11-26] MEDS: clopidogrel 75 mg Tablet PO (09:25)
[2020-11-26] MEDS: metoprolol tartrate 25 mg Tablet 12.5 MG PO ×2 (09:25→17:26)
[2020-11-26] MEDS: atorvastatin 40 mg Tablet PO (09:29)
[2020-11-26] MEDS: sodium chloride 0.9% 1,000 ML 75 ML IV ×2 (11:20→23:50)
--- NOTE | 2020-11-26 12:17 | PM.PN ---
Subjective Subjective: Interval history: Patient is doing well. No chest pain, shortness of breath or palpitations. ECHO shows mildly reduced LV dysfunction with EF of 45-50% Vitals/I&O/Wt Last Vital Signs Temp 97.7 F 11/26/20 08:00 Pulse 63 11/26/20 08:00 Resp 17 11/26/20 08:00 BP 124/85 11/26/20 08:00 Pulse Ox 97 11/26/20 08:00 11/25/20 11/26/20 11/26/20 22:59 06:59 14:59 Intake Total 1240 / 1240 1360 / 1360 Output Total 400 / 400 400 / 800 350 / 350 Balance 840 / 840 -400 / 440 1010 / 1010 Weight last 48 hrs Weight 221 lb Physical Exam Narrative: EXAM NARRATIVE: GENERAL: Patient is alert, awake and oriented x3. [] NECK: No jugular vein distension. [] HEENT: No cyanosis. No icterus. No pallor. [] HEART: Regular S1 and S2. No murmur, rub or gallop. [] LUNGS: Clear to auscultate bilaterally. [] ABDOMEN: Soft, nontender and nondistended. Positive bowel sounds. No guarding, rebound or tenderness. [] CENTRAL NERVOUS SYSTEM: Grossly nonfocal. [] EXTREMITIES: Lower extremities with no edema bilaterally. Pulses palpable in the lower extremities, both dorsalis pedis and posterior tibial. [] Data : 11/27/20 04:37 11/27/20 04:37 A&P Assessment and plan (1) ST elevation myocardial infarction (STEMI): Status: Acute Qualifiers: Involved coronary artery: unspecified coronary artery Qualified Code(s): I21.3 - ST elevation (STEMI) myocardial infarction of unspecified site (2) Sick sinus syndrome: Status: Acute (3) Essential hypertension: Status: Acute (4) Hx of cardiac pacemaker: Status: Acute (5) Tobacco abuse: Status: Acute Patient had acute ST elevation [place]. Coronary angiogram demonstrated total thrombotic occlusion of mid LAD. He underwent successful revascularization with ED x2. Patient is stable, he can be transferred out of the ICU Aspirin and Plavix for at least 1 year. High intensity statin therapy. ECHO shows mildly reduced LV systolic function with EF of 45-50% On metoprolol and will start lisinopril If patient stays stable, will be discharged home tomorrow. Attestations Medical Necessity Statement*: Care expected to cross 2 midnights. 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
--- NOTE | 2020-11-26 13:06 | PC.NURSE ---
report called to Maude NORWOOD will transfer to [facility].
--- NOTE | 2020-11-26 13:27 | PC.NURSE ---
pt transferred to [facility] via wheelchair.
[2020-11-26] MEDS: perflutren protein-a microsphr 0.22 mg/mL SDV 3 mL IV (14:22)
[2020-11-27] VITALS: BP 99/73; PULSE 64; RESP 14; O2SAT 93
[2020-11-27 04:01] VITALS: BP 133/88; PULSE 71; RESP 17; TEMP 36.8; O2SAT 96
[2020-11-27 05:28] LABS: Basophils # 0.1 10^3/uL (0.0-0.1); Basophils % 0.6 %; Eosinophils # 0.2 10^3/uL (0.0-0.8); Eosinophils % 2.2 %; Hematocrit 43.6 % (42.0-52.0); Hemoglobin 14.9 g/dL (11.7-16.6); Lymphocytes # 2.3 10^3/uL (0.8-4.8); Lymphocytes % 28.9 %; Mean Corpuscular HGB Conc 34.2 g/dL (30.0-36.0); Mean Corpuscular Hemoglobin 31.3 pg (28.0-34.0); Mean Corpuscular Volume 91.6 fL (80-94); Mean Platelet Volume 10.4 fL (7.4-10.4); Monocytes # 0.7 10^3/uL (0.2-0.9); Monocytes % 8.8 %; Neutrophils # 4.75 10^3/uL (1.8-7.7); Neutrophils % 59.3 %; Nucleated Red Blood Cells % 0 %; Platelet Count 159 10^3/cmm (130-400); Red Blood Count 4.76 10^6/uL (4.1-5.3)
[2020-11-27 05:43] VITALS: PULSE 60
[2020-11-27 05:51] LABS: Anion Gap 14.1 (5-19); Blood Urea Nitrogen 12 mg/dL (8-23); Calcium 8.4 mg/dL (8.5-10.5); Carbon Dioxide 22 mmol/L (22-29); Chloride 108 mmol/L (98-107); Creatinine Clr Calc Pharmacy 90.2683; Glucose 96 mg/dL (65-115); Osmolality Calculated 290 mOsm/kg (285-295); Potassium 4.1 mmol/L (3.5-5.1); Sodium 140 mmol/L (136-145)
[2020-11-27 07:24] VITALS: BP 143/94; PULSE 63; RESP 17; TEMP 36.9; O2SAT 98
--- NOTE | 2020-11-27 08:57 | PM.DCS ---
Discharge Providers Date of Admission: 11/25/20 21:02 Date of Discharge: November 27, 2020 Attending Provider at Admission: Alfreda Steen MD Attending Provider at Discharge: Alfreda Steen MD Primary Care Provider: Jolanta Dupont MD Diagnoses at Discharge Discharge Diagnosis (1) ST elevation myocardial infarction (STEMI): Status: Acute Qualifiers: Involved coronary artery: unspecified coronary artery Qualified Code(s): I21.3 - ST elevation (STEMI) myocardial infarction of unspecified site (2) Sick sinus syndrome: Status: Acute (3) Essential hypertension: Status: Acute (4) Hx of cardiac pacemaker: Status: Acute (5) Tobacco abuse: Status: Acute Permanent problem details: Chews tobacco Reason for Visit Reason for Visit: chest pain Brief History: 65 year old male with past medical history of sick sinus syndrome status post pacemaker placement, tobacco abuse(chews tobacco) and hypertension who presented to the hospital with 2 days of on and off exertional chest pain. Initial EKG did not reveal ST elevations. He developed substernal severe chest pain in the ER along with diaphoresis and a repeat EKG showed ST elevation in septal/anterior leads. Hospital Course Hospital Course 65 year old male with past medical history of sick sinus syndrome status post pacemaker placement, tobacco abuse(chews tobacco) and hypertension who presented to the hospital with 2 days of on and off exertional chest pain. Initial EKG did not reveal ST elevations. He developed substernal severe chest pain in the ER along with diaphoresis and a repeat EKG showed ST elevation in septal/anterior leads. He was emergently taken to labor delivery specialist that showed total thrombotic occlusion of the mid LAD. He underwent successful revascularization with ED x 2. His echocardiogram showed an EF of 45-50%. He was put on aspirin and plavix. he stayed stable throughout the hospital course and discharged in a stable condition with outpatient cardiology follow up Physical Exam Narrative: EXAM NARRATIVE: GENERAL: Patient is alert, awake and oriented x3. [] NECK: No jugular vein distension. [] HEENT: No cyanosis. No icterus. No pallor. [] HEART: Regular S1 and S2. No murmur, rub or gallop. [] LUNGS: Clear to auscultate bilaterally. [] ABDOMEN: Soft, nontender and nondistended. Positive bowel sounds. No guarding, rebound or tenderness. [] CENTRAL NERVOUS SYSTEM: Grossly nonfocal. [] EXTREMITIES: Lower extremities with no edema bilaterally. Pulses palpable in the lower extremities, both dorsalis pedis and posterior tibial. [] Discharge Data Data Completed and Pending: Completed Studies During Hospitalization Category Date Time Status XR chest 1V crow ble [id number] Stat Exams 11/25/20 17:55 Completed Pending at discharge Category Date Time Status HUMAN RESOURCES OPERATIONS SPECIALIST request for service Stat Exams 11/25/20 19:52 Ordered Basic Metabolic P artem AM LABS Lab 11/28/20 04:00 Ordered Complete Blood Co unt w/Auto AM LABS Lab 11/28/20 04:00 Ordered CV echo wo/w cont rast [id number] Routine Ultrasound 11/26/20 22:22 Taken US/CV paperwork R outine Ultrasound 11/26/20 Taken Labs from last 24 hours 11/27/20 11/27/20 04:37 04:37 WBC 8.0 RBC 4.76 Hgb 14.9 Hct 43.6 MCV 91.6 MCH 31.3 MCHC 34.2 RDW 13.0 Plt Count 159 MPV 10.4 Neut % (Auto) 59.3 Lymph % (Auto) 28.9 Steuben % (Auto) 8.8 Eos % (Auto) 2.2 Baso % (Auto) 0.6 Neut # (Auto) 4.75 Lymph # (Auto) 2.3 Steuben # (Auto) 0.7 Eos # (Auto) 0.2 Baso # (Auto) 0.1 Nucleated RBC % (a uto) 0 Nucleated RBCs # 0.0 Sodium 140 Potassium 4.1 Chloride 108 H Carbon Dioxide 22 Anion Gap 14.1 BUN 12 Creatinine 1.0 GFR Calculation 75.0 L Glucose 96 Calculated Osmolal ity 290 Calcium 8.4 L Vitals: Last Vital Signs Temp 98.5 F 11/27/20 07:24 Pulse 63 11/27/20 07:24 Resp 17 11/27/20 07:24 BP 143/94 11/27/20 07:24 Pulse Ox 98 11/27/20 07:24 Discharge Plan Discharge Patient Disposition: Home Condition: Stable Prescriptions: New aspirin 81 mg Tablet,Delayed Release (Dr/Ec) 81 mg PO DAILY Qty: 90 RF: 3 clopidogrel 75 mg Tablet 75 mg PO DAILY Qty: 90 RF: 3 lisinopril 2.5 mg Tablet 2.5 mg PO DAILY Qty: 90 RF: 3 metoprolol tartrate 25 mg Tablet 12.5 mg PO BID Qty: 90 RF: 3 Continued Zyrtec 10 mg capsule 10 mg PO DAILY RF: 0 atorvastatin 40 mg tablet 40 mg PO EVERY OTHER DAY RF: 0 nystatin-triamcinolone Cream 1 applic topical DAILY PRN (Reason: Skin Irritation) RF: 0 phenazopyridine [Pyridium] 100 mg tablet 100 mg PO TID PRN (Reason: urinary pain) RF: 0 meloxicam 7.5 mg tablet 7.5 mg PO DAILY RF: 0 Discontinued omeprazole 20 mg capsule,delayed release(DR/EC) 20 mg PO DAILY RF: 0 Discharge Orders: Discharge Order (Routine); Ordered 11/27/20 Ordered By: Joe Zacarias Referrals: Jolanta Dupont MD [Primary Care Provider] - 1 month ([facility] will contact you to schedule an follow-up appointment in 1 month. If you haven't heard from them by Saturday. Please call ) Nayely Koenig FNP [Nurse Practitioner] - 7-10 days ([facility] will contact you to schedule an follow-up appointment in 7 to 10 days. If you haven't heard from them By Saturday. Please call ) Discharge Diet: Cardiac Discharge Activity: Increase activity as tolerated Patient Instructions: Metoprolol (By mouth), Lisinopril (By mouth), Clopidogrel (By mouth), Myocardial Infarction (DC), Left Heart Catheterization (DC), Coronary Angioplasty (DC), Opioid Safety, Post Angiogram Home Care Instructions Activity Restrictions/Additional Instructions: Please do not lift more than 5 pounds of weight for the next 5 days Discharge Attestations Time Spent in Discharge Care*: greater than 30 min Quality Metrics Clinical Quality Measures During this hospital stay, did patient experience: AMI Clinical Trial Participant: No Contraindication to aspirin (AMI): Aspirin given Contraindication to statin: Statin prescribed Contraindication to PCI: PCI performed Coding Level of Care Code Acute Chg FW DC note Diagnoses ST elevation myocardial infarction (STEMI) I21.3 Involved coronary artery: unspecified coronary artery Sick sinus syndrome I49.5 Essential hypertension I10 Hx of cardiac pacemaker Z95.0 Tobacco abuse Z72.0
[2020-11-27] MEDS: aspirin 81 mg EC Tablet PO (09:00)
[2020-11-27] MEDS: atorvastatin 40 mg Tablet PO (09:00)
[2020-11-27] MEDS: metoprolol tartrate 25 mg Tablet 12.5 MG PO (09:00)
[2020-11-27] MEDS: lisinopril 2.5 mg Tablet PO (09:00)
[2020-11-27] MEDS: clopidogrel 75 mg Tablet PO (09:00)
[2020-11-27 09:14] VITALS: BP 143/94; PULSE 63; RESP 17; TEMP 36.9; O2SAT 98
--- NOTE | 2020-11-27 09:30 | PC.NURSE ---
patient provided with discharge instructions and follow up instructions patient discharge home self care. Patient ambulated to Private vehicle accompanied by staff all belonging and discharge instructions in hand. Patient alert oriented and stable upon departure
--- NOTE | 2020-11-28 17:41 | PC.RESP ---
Smoking Cessation information sent to patient.
== END 2020-11-27 09:35 | disposition home or self-care (01) | DRG 247 ==
LOC: ER 19:59 → ICU 21:03 → CSU 11-26 13:17
PROVIDERS: Admitting Provider Internal Medicine; Emergency Provider Emergency Medicine; PCP Internal Medicine Cardiovascular Disease; Visit Provider Internal Medicine
PROC: 027035Z Dilation of Coronary Artery, One Artery with Two Drug-eluting Intraluminal Devices, Percutaneous Approach (ICD-10-PCS; principal; 2020-11-25 20:00)
PROC: 027035Z Dilation of Coronary Artery, One Artery with Two Drug-eluting Intraluminal Devices, Percutaneous Approach (ICD-10-PCS; 2020-11-25 20:00)
DX: I21.02 ST elevation (STEMI) myocardial infarction involving left anterior descending coronary artery (principal); Z95.0 Presence of cardiac pacemaker; I10 Essential (primary) hypertension; F17.220 Nicotine dependence, chewing tobacco, uncomplicated
CPT/HCPCS: 36415; 71045; 80048; 80053; 84484; 85025; 85347; 85610; 93005; 93306; 93454; 96374; 96375; 96376; 99291; C1725; C1760; C1769; C1874; C1887; C1894; C8929; C9606; J1644; J2250; J2270; J2405; J3010; J3246; J3490; J7030; Q9956; Q9967

== ENCOUNTER → 2020-12-05 13:35 | Outpatient (BNVA) | payer MEDICARE, SELFPAY | PROVIDERS: PCP Electrodiagnostic Medicine; Visit Provider Nurse Practitioner Family | DX: I25.10 Atherosclerotic heart disease of native coronary artery without angina pectoris (principal); Z95.5 Presence of coronary angioplasty implant and graft; Z09 Encounter for follow-up examination after completed treatment for conditions other than malignant neoplasm; I10 Essential (primary) hypertension | CPT/HCPCS: 80048 ==

== ENCOUNTER 2021-03-01 13:26 | Outpatient (CLI) | payer MEDICARE, SELFPAY ==
--- NOTE | 2021-03-01 13:30 | USCV_ITS ---
Ray Lopez Age: 65 Gender: M : 1955 Exam Date: 03/01/2021 13:39 Ordering Phys: Jolanta Dupont MD ([email or web address]) Technologist: LIZBETH FLYNN [place]am Location[place] [facility] [place] Indication: Checking on the CCAs Risk Factors: Unknown Previous Vascular Surgery: Unknown Right Brachial BP: / Left Brachial BP: / Right Left Velocity (cm/s) Spectral Plaque Velocity (cm/s) Spectral Plaque Syst/Diast Broadening Syst/Diast Broadening 67.50/ 19.90 Prox CCA 74.90 / 18.20 80.50/ 25.40 Mid CCA 62.50 / 18.90 82.70/ 24.30 Distal CCA 74.20 / 19.50 50.10/ 15.00 Prox ICA 58.60 / 20.20 50.10/ 23.00 Mid ICA 57.30 / 25.40 49.10/ 20.50 Distal ICA 62.50 / 20.80 43.60 ECA 54.70 0.62 ICA/CCA 1.00 Antegrade Vertebral Antegrade 25.80/ 5.60 cm/s 39.10/ 14.30 cm/s Tri Subclavian Tri 58.60 74.20 FINDINGS Normal intimal thickening with no significant plaques Normal Doppler flow velocities and ratios Antegrade flow in the vertebral arteries bilaterally CONCLUSIONS Minimal intimal thickening in the common carotid and no carotid arteries bilaterally. No unstable plaques No significant stenosis, based on the above findings. Dr Esha Yip MD [facility] (Electronically Signed) Final Date: 06 March 2021 20:26 S
== END 2021-03-01 13:27 | disposition home or self-care (01) ==
LOC: US 13:28
PROVIDERS: PCP Electrodiagnostic Medicine; Visit Provider Internal Medicine Cardiovascular Disease
DX: E78.5 Hyperlipidemia, unspecified (principal); I25.119 Atherosclerotic heart disease of native coronary artery with unspecified angina pectoris; R09.89 Other specified symptoms and signs involving the circulatory and respiratory systems
CPT/HCPCS: 93880

== ENCOUNTER → 2022-04-06 08:05 | Outpatient (BNVA) | payer MEDICARE, SELFPAY | PROVIDERS: PCP Electrodiagnostic Medicine; Visit Provider Internal Medicine | DX: Z45.010 Encounter for checking and testing of cardiac pacemaker pulse generator [battery] (principal) | CPT/HCPCS: 93280 ==

== ENCOUNTER 2024-04-07 20:00 | Outpatient (CLI) | payer MEDICARE, SELFPAY | END 2024-04-07 20:01 | disposition home or self-care (01) | LOC: SLEEP 21:34 | PROVIDERS: PCP Electrodiagnostic Medicine; Visit Provider Electrodiagnostic Medicine | DX: G47.10 Hypersomnia, unspecified (principal) | CPT/HCPCS: 95810 ==

== ENCOUNTER → 2024-12-09 11:38 | Outpatient (BNVA) | payer MEDICARE, SELFPAY | PROVIDERS: PCP Electrodiagnostic Medicine; Visit Provider Internal Medicine | DX: I25.10 Atherosclerotic heart disease of native coronary artery without angina pectoris (principal); I10 Essential (primary) hypertension; Z79.82 Long term (current) use of aspirin; Z95.0 Presence of cardiac pacemaker; Z95.5 Presence of coronary angioplasty implant and graft | CPT/HCPCS: 99214 ==

== ENCOUNTER 2025-06-12 18:03 | Emergency (ER) | payer MEDICARE, SELFPAY ==
--- OUTSIDE RECORDS SUMMARY | 2024-01-15 04:15 | XMS_ITS ---
Author Organization [facility] Address [address] [place] [address] Care Team Providers Care Field Agent Name Role Phone Charles Coleman DO Primary Care Provider Unavail Haylee Taveras [facility] [phone] Encounters Encounter Location Date Provider Diagnosis Formerly [facility] [address] [place] [address] 01/15/2024 Haylee Madden Plan Of Treatment No Information Progress Notes * MELANIA IVANVERONICAOB:1955 (70 yo M)Acc No.[id number]:01/15/2024 Patient: TORREY KUMARI Provider: Prabha Madden MD :1955 A ge:68 Y S ex:Male Date:01/15/2024 Address:[address] [place], [place] [id number] Pcp:Charles Coleman DO Check In:10:04 AM CSTCheck O ut:10:07 AM CAMP GUARD Billing Information: * Procedure Codes: * Electronic signature of Raquel Madden MD on 06/12/2025 at 06:13 PM CAMP GUARD Sign off status: Pending * Provider: Prabha Madden MD Date: 0 01/15/2024 Generated for Ellii vannessa/Maggie/eTransmitting on: 1 08/13/2024 06:13 PM CAMP GUARD
--- OUTSIDE RECORDS SUMMARY | 2025-06-12 18:14 | XMS_ITS | Continuity of Care Document ---
Author Organization [facility] Martin LAlbaro, [facility] ([facility]) Address [address] [place] [address] Care Team Providers Care Operator Helper Name Role Phone LIAN COLEMAN Primary Care Provider Unavailabl e Assessment Encounter Date Assessment Date Assessment LastModified by Organization Details LastModified Time 04/05/2025 04/05/2025 Document scribed by Wojciech Marvin Yam Curer. I was present during interview and exam. I have reviewed and agree with above documentation . Dr. Lian Coleman. [email or web address] Not available 04/05/2025 18:08:47 Plan of Treatment Reminders Order Date Submit Date Provider Last Modified By Organization Details Last Modified Time Details Appointments None record ed. Lab None record ed. Referral None record ed. Procedures None record ed. Surgeries None record ed. Imaging None record ed. Medication Orders None record ed. Patient TargetsNo targets recorded. Patient InstructionsNo instructions recorded. Reason for Referral None Reported. Problems Name Problem SNOMED Code Status Onset Date Resolution Date Notes Provider Name and Address Organization Details Recorded Time Coronary arterios clerosis 90150348 Active 2018 Lian Coleman DO [address] [place], [phone], [facility]anca[facility]id 4 10:50:18 Primary repair of inguinal hernia Completed 202210/19/2024 Inguinal Hernia Repair-L eft; 08/22/19 8:36AM by Haylee Adame, Office Visit; Promoted ; acuity set as *; [facility] 10:26:31 Vertigo 007464830 Active 2022 Liz Matae null, [facility] 5 10:26:36 Acute gastroen teritis 72457197 Active 2022 Liz Matae null, [facility] 5 10:26:02 Impacted cerumen 26525412 Active 2022 Liz Matae null, [facility] 5 10:26:26 [facility] l hyperten ida 87825792 Active 2023 Wojciech Marvin [facility], [facility] 5 11:11:12 Acid reflux 782979877 Active 2023 Wojciech Marvin [facility], [facility] 5 11:11:12 Angina pectoris 829619908 Active 2023 Liz Matae [facility], [facility] 5 10:26:16 Permanen t cardiac pacemake r 76077276073 9102 Active 2023 Wojciech Marvin [facility], [facility] 5 11:11:12 Calculus of kidney and ureter 349884037 Active 2023 Liz Adams [facility], [facility] 5 10:26:20 Acute pyelonep hritis 30826504 Active 2023 Liz Adams [facility], [facility] 5 10:26:06 Chest pain 07501776 Active 2023 Liz dAams [facility], [facility] 5 10:26:23 Hyperlip idemia 70963019 Active 2023 Wojciech murillo, [facility] 5 11:11:12 Nicotine dependen ce 34532211 Active 2023 Wojciech murillo [facility] 5 11:11:12 Pain of left knee joint 28673343555 4107 Active 2024 Wojciech murillo [facility] 5 14:36:40 Problem Notes None recorded. Procedures Surgical History Date Name Laterality Status Provider Name and Address Organization Details Recorded Time 5 Joint Inj Kenalog- Shoulder, Hip, Knee completed Wojciech Marvin [facility] 02/24/2025 14:37:17 3 Cerumen Removal-Irri gation completed Leonard Velez MD [address] [place] [address], [phone], [facility] 05/30/2023 08:53:58 3 Joint Inj Kenalog- Shoulder, Hip, Knee completed Lian Coleman DO [address] [place] [address], [phone], [facility] 10/17/2022 15:57:17 Imaging Results None recorded. Procedure Notes None recorded. Medical Equipment None Reported. Allergies No known drug allergies Medications Name Sig Start Date Stop Date Status Note LastModified by Organization Details LastModified Time atorvasta tin 40 mg tablet TAKE 1 TABLET BY MOUTH ONCE DAILY IN THE EVENING 2024 active Not Available Not Available Not Avai lable cetirizin e 10 mg tablet TAKE 1 TABLET BY MOUTH ONCE DAILY FOR ALLERGIE S 12/15 completed Not Available Not Available Not Available azithromy gurmeet 250 mg tablet 10/04 completed Not Available Not Available Not Available metoprolo l succinate ER 50 mg tablet,ex tended release 24 hr TAKE 1 TABLET BY MOUTH ONCE DAILY AT BEDTIME active Not Available Not Available No t Available meloxicam 15 mg tablet Take 1 tablet by mouth once daily 2024 active Not Available Not Available Not Avai lable lisinopri l 20 mg tablet Take 1 tablet every day by oral route in the morning for 30 days. active Not Available Not Available No t Available prednison e 20 mg tablet TAKE 2 TABLETS BY MOUTH ONCE DAILY IN THE MORNING FOR 7 DAYS 04/19 completed Not Available Not Available Not Available clopidogr el 75 mg tablet TAKE 1 TABLET BY MOUTH ONCE DAILY active Not Available Not Available No t Available ciproflox acin 500 mg tablet Take 1 tablet twice a day by oral route for 7 days. 10/19 completed Not Available Not Available Not Available sulfameth oxazole 800 mg-trimet hoprim 160 mg tablet TAKE 1 TABLET BY MOUTH TWICE DAILY 10/04 completed Not Available Not Available Not Available ketorolac 30 mg/mL (1 mL) injection solution Inject 2 mL every day by intramus cular route. 08/18 completed Not Available Not Available Not Available Kenalog 40 mg/mL suspensio n for injection Take 40 mg by injectio n route. 2024 active Not Available Not Available Not Avai lable tamsulosi n 0.4 mg capsule Take 1 capsule by mouth once daily 2024 active Not Available Not Available Not Avai lable hydrocodo ne 7.5 mg-acetam inophen 325 mg tablet 10/04 completed Not Available Not Available Not Available pantopraz ole 40 mg tablet,de layed release TAKE 1 TABLET BY MOUTH ONCE DAILY active Not Available Not Available No t Available nitroglyc hong 0.4 mg sublingua l tablet DISSOLVE ONE TABLET UNDER THE TONGUE EVERY 5 MINUTES NEEDED FOR CHEST PAIN. DO NOT EXCEED A TOTAL OF 3 DOSES IN 15 MINUTES active Not Available Not Available No t Available Tylenol 325 mg tablet as directed active Not Available Not Available No t Available metoprolo l succinate ER 25 mg tablet,ex tended release 24 hr TAKE 1 TABLET BY MOUTH TWICE DAILY 07/31 completed Not Available Not Available Not Available fluticaso ne propionat e 50 mcg/actua tion nasal spray,pratik pension USE 2 SPRAY(S) IN EACH NOSTRIL ONCE DAILY active Not Available Not Available No t Available doxycycli ne hyclate 100 mg tablet 10/04 completed Not Available Not Available Not Available amoxicill in 875 mg-potass ium clavulana te 125 mg tablet TAKE 1 TABLET BY MOUTH TWICE DAILY FOR 7 DAYS 02/24 completed Not Available Not Available Not Available meloxicam daily 05/29 completed DM/sd; Recorded 06/20/19 10:59AM by Haylee Adame, Office Visit; Refill Quantity : 90; Tablet; Not Available Not Available Not Available Vitals Date Recorded Body height Body mass index (BMI) Body weight Oxygen saturation Heart rate Respiratory rate Systolic And Diastolic Provider Name and Address Organization Details Last Updated DateTime 182.88 cm 29.9 kg/m2 54110.4 2 g 98 % 98 /min 18 /min 130/86 mm[Hg] Liz Adams [facility] 17:41:19 Social History Question Answer Notes LastModified by [employer] Details LastModified Time Tobacco Smoking Status Former Smoker Cecy murillo, [facility] 02/11/2025 10:19:15 What Was The Date Of Your Most Recent Tobacco Screening? 02/11/2025 [email or web address] Information not available 02/11/2025 Sex: Unknown Functional Status Question Answer Note LastModified by [employer] Details LastModified Time Do you use any illicit or recreational drugs? No Information not available 10/04/2022 Do you or have you ever used any other forms of tobacco or nicotine? Yes [email or web address] Information not available 10/04/2022 What is your level of alcohol consumption? None [email or web address] Information not available 10/04/2022 Do you or have you ever used smokeless tobacco? Currently chews tobacco [email or web address] Information not available 10/04/2022 Mental Status None recorded. Family History Relationship Description Onset Age of this Age Resolved Age Notes LastModified by Organization Details LastModified Time Father Heart disease [email or web address] Not available 2023 10:23:14 Brother Heart disease all 3 Not available 2023 10:23:47 Mother Heart disease [email or web address] Not available 2023 10:23:51 Sister Heart disease [email or web address] Not available 2023 10:24:05 Medical History No medical history recorded. Immunizations Vaccine Type Date Status Note Provider Nam e and Address Organization Details Recorded Time COVID-19, mRNA, LNP-S, PF, 100 mcg/0.5mL dose or 50 mcg/0.25mL dose 08/11/2020 completed Liz murillo [facility] 09/19/2023 10:20:08 COVID-19, mRNA, LNP-S, PF, 100 mcg/0.5mL dose or 50 mcg/0.25mL dose 09/13/2020 completed Liz murillo [facility], LBlancaL[facility]ancaC[facility]anca 09/19/2023 10:20:08 Influenza, split virus, trivalent, PF 03/13/2017 completed Liz murillo [facility], L.L[facility]ancaC[facility]anca 09/19/2023 10:20:08 Past Encounters Encounter ID Performer Location Encounter Start Date Encounter Closed Date Diagnosis/Indication Diagnosis SNOMED-CT Code Diagnosis ICD10 Code Diagnosis IMO Codes Diagnosis Note [id number] Lian Coleman DO [facility] ([facility]) [address] [place] [phone] 04/05/2025 16:53:22 04/07/2025 08:25:39 Swollen ankle region 929504140 M25.472 [id number] 04/05/25: Counseled likely over doing things, causing inflammati on, ice, elevation, Ibuprofen as needed. Health Concerns Section Related Observation LastModified by Organization Detai ls LastModified Time None Recorded Concern Status LastModified by Organization Details LastModified Time None Recorded Payers Encounter Date Sequence Insurance Name Policy Number Policy Burch Covered Member ID Burch Member ID Guarantor Name 04/05/2025 1 [employer]/A DVANTAGE - PPO) [id number] Ray Lopez [id number] Ray Lopez Notes Date Note Type Note Provider Name and Address Organization Details Recorded Time 04/05/2025 text/html ROS as noted in the HPI Pt presents for edema to left ankle. He bought a house and has been remodeling it so he has been standing and working more. He noticed swelling to left ankle approximately 4-5 days ago. Denies any trauma or injury to ankle/foot. Reports he has not rested, elevated, or iced ankle. Denies use of Ibuprofen or Tylenol. Denies pain, but reports it is occasionally itchy. Lian Coleman, DO [address] [place] [address], [phone], [facility] [place] 04/07/2025 07:08:08
--- OUTSIDE RECORDS SUMMARY | 2025-06-12 18:14 | XMS_ITS | Data Portability ---
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 I was present during interview and exam. I have reviewed and agree with above documentation . Dr. Lian Coleman. [email or web address] Not available 02/24/2025 14:24:13 04/05/2025 04/05/2025 Document scribed by Wojciech Marvin Otorhinolaryngologist. I was present during interview and exam. I have reviewed and agree with above documentation . Dr. Lian Coleman. [email or web address] Not available 04/05/2025 18:08:47 Plan of Treatment Reminders Order Date Submit Date Provider Last Modified By Organization Details Last Modified Time Details Appointments None recorded. Lab None recorded. Referral None recorded. Procedures None recorded. Surgeries None recorded. Imaging XR, abdomen 2024 025 [facility] ([facility]), [address] [facility], [place], [address], 14:06:57 Medication Orders Kenalog 40 mg/mL suspension for injection 2024 025 [email or web address] 47 Not available 17:37:16 amoxicillin 875 mg-potassiu m clavulanate 125 mg tablet 2024 025 [facility], [address], [place], [address], 14:12:07 fluticasone propionate 50 mcg/actuati on nasal spray,suspe nsion 2024 025 [facility], [address], [place], [address], 10:39:40 amoxicillin 875 mg-potassiu m clavulanate 125 mg tablet [email or web address] [place] [address] Pharmacy [facility], [address], [place], [address], 14:10:13 Patient TargetsNo targets recorded. Patient InstructionsNo instructions recorded. Reason for Referral None Reported. Results Created Date Observation Date Name Description Value Unit Range Abnormal Flag Note LastModifiedBy Organization Detail LastModifiedTime 10/20/19 25 10/19/2024 XR, kidne y + urete r + bladd er No observ ation record ed. [email or web address] [place], [address], 10/30/2024 11:10:09 10/29/19 25 XR, abdom en No observ ation record ed. [email or web address] [facility] ([facility]) [address] [place], [address], 10/29/2024 18:01:17 Result Notes None recorded. Problems Name Problem SNOMED Code Status Onset Date Resolution Date Notes Provider Name and Address Organization Details Recorded Time Coronary arterios clerosis 86655898 Active 2018 Lian Coleman DO [address] [place], [address] , [facility], [place] 4 10:50:18 Primary repair of inguinal hernia Completed 202210/19/2024 Inguinal Hernia Repair-L eft; 08/22/19 8:36AM by Haylee Eddy, Office Visit; Promoted ; acuity set as *; Liz murillo, [facility] 5 10:26:31 Vertigo 348856799 Active 2022 Lizbobbi Matae lidia, [facility] 5 10:26:36 Acute gastroen teritis 26178716 Active 2022 Liz Adams [facility], [facility] 5 10:26:02 Impacted cerumen 81036387 Active 2022 Liz Bryan [facility], [facility] 5 10:26:26 Ess[facility]ia l hyperten ida 17083443 Active 2023 Wojciech Marvin lidia, [facility] 5 11:11:12 Acid reflux 201790210 Active 2023 Wojciech Marvin lidia, [facility] 5 11:11:12 Angina pectoris 329675943 Active 2023 Liz Adams [facility] 5 10:26:16 Permanen t cardiac pacemake r 26436933087 9102 Active 2023 Wojciech Marvin lidia, [facility] 5 11:11:12 Calculus of kidney and ureter 660531930 Active 2023 Liz Adams [facility], [facility] 5 10:26:20 Acute pyelonep hritis 66925447 Active 2023 Liz murillo, [facility] 5 10:26:06 Chest pain 41112008 Active [address] [facility] 5 10:26:23 Hyperlip idemia 11808070 [facility] 11:11:12 Nicotine dependen ce 57511480 Active [address] [facility] 5 11:11:12 Pain of left knee joint 18680094008 4107 Active [address] [facility] 5 14:36:40 Problem Notes None recorded. Procedures Surgical History Date Name Laterality Status Provider Name and Address Organization Details Recorded Time 5 Joint Inj Kenalog- Shoulder, Hip, Knee completed Wojciech Marvin [facility] 02/24/2025 14:37:17 3 Cerumen Removal-Irri gation completed Leonard Velez MD [address] [place] [address], [address], [facility] 05/30/2023 08:53:58 3 Joint Inj Kenalog- Shoulder, Hip, Knee completed Lian Coleman DO [address] [place] [address], [address], [facility] 10/17/2022 15:57:17 Imaging Results None [...] completed DM/sd; Recorded 06/20/19 10:59AM by Haylee Eddy, Office Visit; Refill Quantity : 90; Tablet; Not Available Not Available Not Available Vitals Date Recorded Body height Body mass index (BMI) Body weight Oxygen saturation Heart rate Respiratory rate Body temperature Systolic And Diastolic Provider Name and Address Organization Details Last Updated DateTime 5 182.88 cm 31.7 kg/m2 481922. 12 g 97 % 83 /min 18 /min 98.1 [degF] 130/80 mm[Hg] Liz Adams [facility] 5 10:27:54 Date Recorded Body height Body mass index (BMI) Body weight Oxygen saturation Heart rate Respiratory rate Body temperature Systolic And Diastolic Provider Name and Address Organization Details Last Updated DateTime 5 182.88 cm 30.7 kg/m2 078935. 88 g 98 % 78 /min 16 /min 97.5 [degF] 140/90 mm[Hg] Cecy Barrera [facility] 5 10:18:30 Date Recorded Body height Body mass index (BMI) Body weight Oxygen saturation Heart rate Respiratory rate Systolic And Diastolic Provider Name and Address Organization Details Last Updated DateTime 5 182.88 cm 30.8 kg/m2 790365. 57 g 99 % 82 /min 18 /min 146/94 mm[Hg] HAYLEE EDDY [facility] 5 14:09:40 Date Recorded Body height Body mass index (BMI) Body weight Oxygen saturation Heart rate Respiratory rate Systolic And Diastolic Provider Name and Address Organization Details Last Updated DateTime 5 182.88 cm 29.9 kg/m2 14767.4 2 g 98 % 98 /min 18 /min 130/86 mm[Hg] Liz Adams [facility] 5 17:41:19 Social History Question Answer Notes LastModified by Organizat ion Details LastModified Time Tobacco Smoking Status Former Smoker Cecy Lymanbogdan murillo [facility] 02/11/2025 10:19:15 What Was The Date Of Your Most Recent Tobacco Screening? 02/11/2025 [email or web address] Information not available 02/11/2025 Sex: Unknown Functional Status Question Answer Note LastModified by Organizat ion Details LastModified Time Do you use any illicit or recreational drugs? No Information not available 10/04/2022 Do you or have you ever used any other forms of tobacco or nicotine? Yes [email or web address] Information not available 10/04/2022 What is your level of alcohol consumption? None [email or web address] Information not available 10/04/2022 Do you or have you ever used smokeless tobacco? Currently chews tobacco [email or web address] Information not available 10/04/2022 Mental Status None recorded. Family History Relationship Description Onset Age of this Age Resolved Age Notes LastModified by Organization Details LastModified Time Father Heart disease Not available 2023 10:23:14 Brother Heart disease all 3 [email or web address] Not available 2023 10:23:47 Mother Heart disease Not available 2023 10:23:51 Sister Heart disease [email or web address] Not available 2023 10:24:05 Medical History No medical history recorded. Immunizations Vaccine Type Date Status Note Provider Nam e and Address Organization Details Recorded Time COVID-19, mRNA, LNP-S, PF, 100 mcg/0.5mL dose or 50 mcg/0.25mL dose 08/11/[address] [facility] 09/19/2023 10:20:08 COVID-19, mRNA, LNP-S, PF, 100 mcg/0.5mL dose or 50 mcg/0.25mL dose 09/13/[address] [facility] [place] 09/19/2023 10:20:08 Influenza, split virus, trivalent, PF 03/13/[address] [facility] [place] 09/19/2023 10:20:08 Past Encounters Encounter ID Performer Location Encounter Start Date Encounter Closed Date Diagnosis/Indication Diagnosis SNOMED-CT Code Diagnosis ICD10 Code Diagnosis IMO Codes Diagnosis Note [id number] Lian Coleman DO [facility]) [address] [place] [id number] 5 10/04/2022 08:39:20 10/09/2022 16:41:00 Pain of left knee joint 7487099903 79527 M25.562 Osteoarthr itis of left knee joint 7629232390 30957 M17.12 concern for acute flair vs meniscal injury. continue mobic, steroid burst orally. xray today, consider joint injection. counseled [id number] Lian Coleman DO [facility] ([facility]) [address] [place] [id number] 5 10/17/2022 15:12:15 10/17/2022 20:04:35 Osteoarthritis of left knee joint 4988016236 83212 M17.12 reviewed xray results with pt.I counseled pt on DX and treatment options. Pt desires to proceed with Joint injection today. Performed as documented . Pt tolerated well. counseled on limiting activity the next 24 hrs. return if problems. [id number] LEAH PEREZ PA-C [facility] ([facility]) [address] [place] [id number] 5 04/19/2023 14:56:11 04/25/2023 10:09:49 Abdominal pain 52311757 R10.9 urine with hematuria supports dx of kindey stone. KUB no spefic stones seen in ureter. some shadows in the kidneys Kidney stone 02684380 N2 0.0 IM Toradol today. Pt states he has some narcotic pain meds at home already. I encouraged him to push fluids, take pain meds and strain urine. If he has a drop in urine production , s/s if infection or pain is not in control then go to ER. If he has not passed stone by saturday call and will get him a out pt CT scan and urology referal [id number] Leonard Velez MD [facility] ([facility]) [address] [place] [id number] 5 05/29/2023 14:58:11 05/29/2023 15:39:41 Vertigo 255729240 R42 Likely secondary to the vomiting. Follow-up if recurrent Acute gastroenteritis 69 277903 K52.9 Likely gastroente ritis that resulted in vomiting this morning. This is likely related this scenario that led to his vertigo. Continue with clear liquid today and start with bland diet tomorrow. Impacted cerumen 4215008 6 H61.21 Improved with interventi on. See procedure note [id number] Lian Coleman DO [facility] ([facility]) [address] [place] [id number] 5 07/31/2023 10:27:56 07/31/2023 11:53:51 Essential hypertension 34587449 I10 07/31/23- deteriorat ed, will change Metoprolol from 25mg BID to 50mg daily, at night. Start Lisinopril 20mg each am. Monitor BP and keep a log, f/u 2 weeks. Acid reflux 134745153 K2 1.9 Benign pro static hyperplasia without outflow obstruction 966038732 N40.0 [id number] Lian Coleman DO [facility] ([facility]) [address] [place] [id number] 5 08/19/2023 13:12:34 08/19/2023 15:40:31 Essential hypertension 66303968 I10 07/31/23- deteriorat ed, will change Metoprolol from 25mg BID to 50mg daily, at night. Start Lisinopril 20mg each am. Monitor BP and keep a log, f/u 2 weeks. Angina pectoris 10829009 0 I20.9 Concern for possible cardiac etiology. We have referred to cardiology but we are still more than 1 month out. We will get stress test. Patient is to go to ER with any severe chest pain. Counseled. Permanent cardiac pacemaker 2763961989 23347 Z95.0 Chronic. Keep appointmen t with cardiology Calculus o f kidney and ureter 381734924 N20.2 Frequent passing of kidney stones. Multiple every month. Patient has not seen urology in more than 3 or 4 years. Will refer to urology. Counseled on diet and fluids. Acute pyelonephritis 366 21019 N10 Patient with frequent recurrent ureterolit hiasis with intermitte nt secondary pyelonephr itis. He is passing multiple kidney stones every month. Just passed tomorrow. With possible signs of infection. We will start Cipro and refer to urology. Chest pain 81377972 R07. 9 Concern for cardiac etiology. Will order stress test. Patient already has appoint with cardiology scheduled in 1 month. Nicotine dependence 5629 4008 F17.200 Patient continues to chew tobacco daily. History of smoking.I counseled patient on tobacco use. risks, hazards, complicati ons, and associated illnesses. We discussed tobacco cessation options. The patient will work on cutting back but is not ready to quit. We spent 4 minutes discussing this. All questions were addressed. Hyperlipidemia 43890422 E78.5 Stable. Will repeat labs next appt. Continue Atorvastat in. Counseled on diet and exericse. [id number] Lian Coleman DO [facility] ([facility]) [address] [place] [id number] 5 09/05/2023 09:36:25 09/05/2023 12:50:44 Calculus of kidney and ureter 762634663 N20.2 Frequent passing of kidney stones. Multiple every month for years. He is now establishe d at [facility] at [facility]. keep appt next nj. Essential hypertension 57811278 I10 09/19/23- remains refractory with significan t undulation s. concern for possible renal disease. will get renal labs, referral to cardiology , no change in meds today. continue to monitor daily. 07/31/23- deteriorat ed, will change Metoprolol from 25mg BID to 50mg daily, at night. Start Lisinopril 20mg each am. Monitor BP and keep a log, f/u 2 weeks. Hyperlipidemia 01722271 E78.5 Stable. Will repeat labs next appt. Continue Atorvastat in. Counseled on diet and exercise. Coronary arteriosclerosis 54131897 I25.10 s/p AMI november 2019. treated by Dr. Drew at [facility] then, no current cardiologi st. has pacemaker and refractory HTN with angina pectoris. will send to cardiology in [facility]. continue atorvastat in, plavix, metoprolol , lisinopril . [id number] Lian Coleman DO [facility] ([facility]) [address] [place] [id number] 09/19/2023 10:06:58 09/19/2023 11:17:15 Calculus of kidney and ureter 148481306 N20.2 Frequent passing of kidney stones. Multiple every month for years. He is now establishe d at [facility]rology at [facility]. keep appt next nj. Essential hypertension 49801900 I10 09/19/23- remains refractory with significan t undulation s. concern for possible renal disease. will get renal labs, referral to cardiology , no change in meds today. continue to monitor daily. 07/31/23- deteriorat ed, will change Metoprolol from 25mg BID to 50mg daily, at night. Start Lisinopril 20mg each am. Monitor BP and keep a log, f/u 2 weeks. Hyperlipidemia 69975799 E78.5 Stable. Will repeat labs next appt. Continue Atorvastat in. Counseled on diet and exercise. Coronary arteriosclerosis 60039160 I25.10 s/p AMI november 2019. treated by Dr. Drew at [facility] then, no current cardiologi st. has pacemaker and refractory HTN with angina pectoris. will send to cardiology in [facility]. continue atorvastat in, plavix, metoprolol , lisinopril . [id number] Lian Coleman DO [facility] ([facility]) [address] [place] [address] [id number] 5 11/06/2023 10:30:54 11/07/2023 10:25:12 Screening for malignant neoplasm of prostate 352706810 Z12.5 [id number] Lian Coleman DO [facility] ([facility]) [address] [place] [id number] 5 03/02/2024 12:08:00 2024 07:02:21 Obstructive sleep apnea syndrome 68624240 G47.33 presumeds. counseled on sleep hygeine, weight loss. will get sleep study to confirm.I counseled the patient on diagnosis, treatment options, medication s, and expectatio ns. All questions were addresssed . They were instructed to call the office or come in for Follow Up with any questions, concerns, or worsening problems. [id number] Lian Coleman DO [facility] ([facility]) [address] [place] [address] [id number] 5 04/29/2024 10:24:28 04/29/2024 17:59:17 [id number] Lian Coleman DO [facility] ([facility]) [address] [place] [address] [id number] 5 06/30/2024 10:40:51 06/30/2024 15:13:09 Dysuria 24687972 R30.0 06/30/24- Reviewed urine results, will start abx for presumed Pyelonephr itis. Essential hypertension 11144198 I10 Stable, continue Lisinopril , Metoprolol , following with Cardiology .09/19/23- remains refractory with significan t undulation s. concern for possible renal disease. will get renal labs, referral to cardiology , no change in meds today. continue to monitor daily. 07/31/23- deteriorat ed, will change Metoprolol from 25mg BID to 50mg daily, at night. Start Lisinopril 20mg each am. Monitor BP and keep a log, f/u 2 weeks. Hyperlipidemia 74210793 E78.5 Stable. Continue Atorvastat in. Counseled on diet and exercise. Nicotine dependence 5629 4008 F17.200 Patient continues to chew tobacco daily. History of smoking.I counseled patient on tobacco use. risks, hazards, complicati ons, and associated illnesses. We discussed tobacco cessation options. The patient will work on cutting back but is not ready to quit. We spent 4 minutes discussing this. All questions were addressed. Permanent cardiac pacemaker 5713721255 55171 Z95.0 I49.5 Chronic. Keep appointmen t with cardiology Obesity 819076957 E66.9 Counseled on diet and exercise. Chronic di astolic heart failure 035922154 I50.32 Echo last 01/15/24, reviewed today. Right flank pain 2483794 09 R10.9 06/30/24- concern for stone, will obtain KUB, f/u Urology if worsening for possible CT. Start abx for presumed Pyelonephr itis.I have independen tly reviewed and interprete d XR results, d/w patient. Dr. Caroline Coleman: KUB: medium sized stone in right distal ureter near bladder, left kidney stone still in renal pelvis. Coronary arteriosclerosis 34362426 I25.10 s/p AMI november 2019. treated by Dr. Drew at [facility] then, no current cardiologi st. has pacemaker and refractory HTN with angina pectoris. will send to cardiology in [facility]. continue atorvastat in, plavix, metoprolol , lisinopril . Acute pyelonephritis 366 26587 N10 Patient with frequent recurrent ureterolit hiasis with intermitte nt secondary pyelonephr itis. He is passing multiple kidney stones every month. Just passed tomorrow. With possible signs of infection. We will start Cipro and refer to urology. [id number] Lian Coleman DO [facility] ([facility]) [address] [place] [id number] 5 10/19/2024 10:16:48 10/19/2024 12:28:32 Acute maxillary sinusitis 16459956 J01.00 [id number] I counseled pt on diagnosis and treatment. we will start abx, pt to take OTC antihistam ine. return if not improving in 1-2 wks. [id number] Lian Coleman DO [facility] ([facility]) [address] [place] [address] [id number] 5 10/19/2024 10:41:06 10/20/2024 14:06:57 Calculus of kidney and ureter 257947898 N20.2 Frequent passing of kidney stones. Multiple every month for years. He is now establishe d at [facility] at [facility]. keep appt next nj. [id number] MAYELA WU [facility] ([facility]) [address] [place] [id number] 5 02/11/2025 10:05:35 02/11/2025 10:45:37 Acute frontal sinusitis 58659032 J01.10 64913877 May continue to use otc meds like zyrtec as needed for symptoms. Return to clinic with any new or worsening symptoms. [id number] Lian Coleman DO [facility] ([facility]) [address] [place] [id number] 5 02/24/2025 13:46:05 03/17/2025 10:52:14 Pain of left knee joint 8359297861 80152 M25.562 [id number] 02/24/25: I counseled pt on DX and treatment options. Pt desires to proceed with Joint injection today. Performed as documented . Pt tolerated well. counseled on limiting activity the next 24 hrs. return if problems. [id number] Lian Coleman DO [facility] ([facility]) [address] [place] [address] [id number] 5 04/05/2025 16:53:22 04/07/2025 08:25:39 Swollen ankle region 049137528 M25.472 [id number] 04/05/25: Counseled likely over doing things, causing inflammati on, ice, elevation, Ibuprofen as needed. Health Concerns Section Related Observation LastModified by Organization Detai ls LastModified Time None Recorded Concern Status LastModified by Organization Details LastModified Time None Recorded Advance Directives Directive None Recorded Payers Insurance Date Sequence Insurance Name Policy Number Policy Burch Covered Member ID Burch Member ID Guarantor Name 04/05/2025 1 [place]/A DVANTAGE - PPO) [id number] Ray Lopez [id number] Ray Lopez Notes Date Note Type Note Provider Name and Address Organization Details Recorded Time 10/19/2024 text/html ROS as noted in the HPI Pt presents for sinus problem for 4-5 daysHe c/o right side pain to head and faceHe denies any ear problems or feverNo cough, he has soreness to right eye when he gets up in the am and cleans his eye out Lian Coleman DO [address] [place] [address], [phone], [facility], [place] 10/19/2024 10:39:17 02/11/2025 text/html Sinusitis/Allerg yRep orted by PatientROS as noted in the HPI walk in patientpatient is here today for sinus pressure, eye pressure, and headache that started 5 days ago. Right side is affected more than the left. Take zyrtec daily. MAYELA WU [address] [place], [address], [facility], [place]. 02/11/2025 10:40:08 02/24/2025 text/html Joint PainReport ed by PatientHPIFor quality, patient reportssharp. For severity, patient reportsworsening. For location, patient reportsleft knee. For duration, patient reportspresent for 1-6 months.ROS as noted in the HPI Patient presents visit today for left knee pain, would like to have a joint injection. No know injury, pain has been ongoing for years, sx have increased over the past 6 mths. unsure of last joint injection Lian Coleman DO [address] [place], [address], [facility], L[place]C. 03/17/2025 09:33:41 04/05/2025 text/html ROS as noted in the [...] but reports it is occasionally itchy. Lian Coleman DO [address] [place], [address], [facility], L[facility]ancaL[facility]C. 04/07/2025 07:08:08
--- OUTSIDE RECORDS SUMMARY | 2025-06-12 18:14 | XMS_ITS | Patient Health Record ---
Author Organization [employer] Address [address] [facility] [place] [address] Care Team Providers Care Director Of Hemophilia Name Role Phone Coleman, Charles Primary Care Provider MARIANA Medeiros Unavailable [phone] Allergies No Known Allergies Results Component Value Reference Range Notes [id number] KUB, X-Ray: Abdomen, K idney, Ureter, bladder Reviewed date:10/28/2024 11:13:03 AM Interpretation: Performing Lab: Notes/Report: Urinalysis, Routine Reviewed date:10/28/2024 10:54:15 AM Interpretation: Performing Lab: Notes/Report: Urine-Color yellow Appearance clear Glucose - Bilirubin 1+ Ketones - Specific [place] 1.030 Occult Blood trace pH 6.0 Urine Protein trace Urobilinogen,Semi-Qn - Nitrite, Urine - WBC Esterase - Urinalysis Gross Exam - Reason For Referral No Information Medications Medication SIG (Take, Route, Frequency, Duration) Notes Start Date End Date Status PriLOSEC Active Metoprolol Tartrate Active Atorvastatin Calcium Active Lisinopril Active Clopidogrel Bisulfate 75 MG Tablet 1 tablet Orally Once a day Active Meloxicam Active Tamsulosin HCl 0.4 MG Capsule 1 capsule Orally Once a day Active Social History Tobacco Use: Social History Observation Description Date Details (start date - stop date) Current Smoker NA - NA Social History Tobacco Use: Social Info Question Answer Notes Tobacco Control (Standard) Tobacco use: Current smoker How often do you smoke cigarettes? Every day Additional Findings: Tobacco user e-cigarette Problems Problem Type SNOMED Code ICD Code Onset Dates Problem Status W/U Status Risk Notes Problem Lower urinary tract symptoms due to benign prostatic hypertrophy (36954800933270 ) Benign prostatic hyperplasia with lower urinary tract symptoms (N40.1) Active confirmed Problem Kidney stone (09766206) Bilateral nephrolithiasis (N20.0) Active confirmed Vital Signs Height-cm 182.88 cm 10/28/2024 Weight-kg 102.06 kg 10/28/2024 Height 72 in 10/28/2024 Weight 225 lbs 10/28/2024 BMI 30.51 kg/m2 10/28/2024 Encounters Encounter Location Date Provider Diagnosis [facility], [place] [address] [place] [address] 10/28/2024 MARIANA MARIE Bilateral nephrolith iasis N20.0 ; Benign prostatic hyperplasia with lower urinary tract symptoms N40.1 ; Weak urinary stream R39.12 ; Microscopic hematuria R31.29 ; Intermittent urinary stream R39.13 ; History of UTI Z87.440 and Tobacco use Z72.0 Assessments Encounter Date Diagnosis (ICD Code) Assessment Notes Treatment Notes Treatment Clinical Notes Section Notes 10/28/2024 Benign prostatic hyperplasia with lower urinary tract symptoms (ICD-10 - N40.1) 10/28/2024 Bilateral nephrolithiasis (ICD-10 - N20.0) 10/28/2024 Weak urinary stream (ICD-10 - R39.12) 10/28/2024 Microscopic hematuria (ICD-10 - R31.29) 10/28/2024 Intermittent urinary stream (ICD-10 - R39.13) 10/28/2024 History of UTI (ICD-10 - Z87.440) 10/28/2024 Tobacco use (ICD-10 - Z72.0) 10/28/2024 Other Per report, mos t recent KUB revealed small left renal stone, right nephrolithiasis gone, which correlates with his report of interval stone passage. No urinary complaint today. Continue Flomax, he will call for refills. RTC in 1 year with KUB, UA/PVR, and PSA, or PRN sooner. Plan Of Treatment Pending Test Test Name Order Date PSA, TOTAL (5363) 10/21/2023 PSA, TOTAL (5363) 09/09/2023 [place] [id number] 09/09/19 24 Future Test Test Name Order Date [id number] KUB, X-Ray: Abdomen, Kidney, Urete r, bladder 03/17/2024 [id number] KUB, X-Ray: Abdomen, Kidney, Urete r, bladder 10/15/2025 PSA, TOTAL (5363) 10/15/2025 Next Appt Details Provider Name:MARIANA MARIE, Chris 10/28/2025 10:50:00 AM, [address] [place], [address], Insurance Providers Payer Name Payer Address Payer Phone Subscriber Number Group Number Insured Name Patient Relationship to Insured Coverage Start Date Coverage End Date [place] Medicare Replacement [address] [place], [place] [id number] Ray Lopez Self - patient is the insured Medical (General) History Medical History History ICD Code htn heart problems high cholesterol h/o kidney stones h/o heart attack Surgical History Surgery Date(Month/Year) pacemaker 2000 cardiac stents 2020 kidney stone 1996 Hospitalization History Reason Date(Month/Year) see sx
--- OUTSIDE RECORDS SUMMARY | 2025-06-12 18:14 | XMS_ITS | Patient Health Record ---
Author Organization [facility] Address [address] [place] [address] Care Team Providers Care Tube Man Name Role Phone Coleman Charles Primary Care Provider Unavail able Haylee Madden Unavailable [phone] Allergies No Known Allergies Reason For Referral No Information Medications Medication SIG (Take, Route, Frequency, Duration) Notes Start Date End Date Status Aspirin 81 MG Tablet Delayed Release 1 tablet Orally Once a day; Duration: 30 days 02/19/2024 Active Metoprolol Tartrate 50 MG Tablet 1 tablet with food Orally daily Active PriLOSEC 2.5 MG Packet as directed Orally Active Atorvastatin Calcium 40 MG Tablet 1 tablet Orally Once a day states that BP was dropping Active Meloxicam 15 MG Tablet 1 tablet Orally Once a day Active Clopidogrel Bisulfate 75 MG Tablet 1 tablet Orally Once a day not sure if he is taking or not Not-Taking Lisinopril 20 MG Tablet 1 tablet Orally Once a day Not-Taking Tamsulosin HCl 0.4 MG Capsule 1 capsule Orally Once a day Active ZyrTEC 10 MG Tablet Chewable 1 tablet Orally Once a day Active Social History Tobacco Use: Social History Observation Description Date Details (start date - stop date) Current Smoker NA - NA Social History Drugs/Alcohol: Social Info Question Answer Notes Caffeine Intake: 2-3 cups per day Tobacco Use: Social Info Question Answer Notes Tobacco Control (Standard) Tobacco use: Current smoker Additional Findings: Tobacco user Snuff user Additional Details Category Social Info Options Details Drugs/Alcohol: Do you drink alcohol? No Problems Problem Type SNOMED Code ICD Code Onset Dates Problem Status W/U Status Risk Notes Problem Essential hypertension (84714126) Essential hypertension (I10) Active confirmed Problem Hyperlipidaemia (69731736) Hyperlipemia (E78.5) Active confirmed Problem Tricuspid regurgitation (571257165) Tricuspid regurgitation (I07.1) Active confirmed Problem Cardiac pacemaker in situ (638945685) Pacemaker (Z95.0) Active confirmed Problem Coronary artery disease (49469558) CAD (coronary artery disease) (I25.10) Active confirmed Problem Stented coronary artery (466731435) Stented coronary artery (Z95.5) Active confirmed Problem Sinus node dysfunction (82418668) SSS (sick sinus syndrome) (I49.5) Active confirmed Plan Of Treatment Pending Test Test Name Order Date Electrocardiogram (EKG) - 53981 12/06/19 24 Insurance Providers Payer Name Payer Address Payer Phone Subscriber Number Group Number Insured Name Patient Relationship to Insured Coverage Start Date Coverage End Date BCBS [place] Medicare Replacement [address] [place] [address] [id number] TORREY IVAN Self - patient is the insured Medical (General) History Medical History History ICD Code HBP covid vacc high cholesterlol Surgical History Surgery Date(Month/Year) kidney stones hreat attack pacemaker
[2025-06-12 18:19] VITALS: BP 158/102; PULSE 70; RESP 20; TEMP 36.7; O2SAT 96; BMI 29.8
--- NOTE | 2025-06-12 19:08 | CTR_ITS ---
PROCEDURE INFORMATION: Exam: CT Abdomen And Pelvis Without Contrast Exam date and time: 06/12/2025 7:15 PM Age: 70 years old Clinical indication: Abdominal pain; Prior surgery; Surgery date: 6+ months; Surgery type: Pacer. Inguinal hernia; C/O left flank pain. History of recurrent ureterolithiasis. TECHNIQUE: Imaging protocol: Computed tomography of the abdomen and pelvis without contrast. Radiation optimization: All CT scans at this facility use at least one of these dose optimization techniques: automated exposure control; mA and/or kV adjustment per patient size (includes targeted exams where dose is matched to clinical indication); or iterative reconstruction. COMPARISON: CR XR abdomen min 2V [id number] 10/19/2024 10:00 AM RADIATION DOSE METRICS: Total DLP (mGy-cm): 896.46 FINDINGS: Tubes, catheters and devices: Pacemaker leads seen in the right cardiac chambers. Diaphragm: Small hiatal hernia. Liver: Normal. No mass. Gallbladder and biliary ducts: Normal. No calcified stones. No ductal dilation. Pancreas: Normal. No ductal dilation. Spleen: Normal. No splenomegaly. Adrenal glands: Normal. No mass. Kidneys and ureters: There are 4 nonobstructing calculi in the right kidney with the largest measuring 0.4 cm. There are 5 nonobstructing calculi in the left kidney with the largest measuring 0.3 cm. There is no right-sided hydronephrosis. There is mild left-sided hydronephrosis and hydroureter to the level of a 0.7 cm calculus in the mid to distal ureter approximately 9 cm above the ureterovesical junction. Stomach and bowel: Few scattered diverticula of the large colon. Appendix: The appendix is not visualized. Intraperitoneal space: Unremarkable. No free air. No significant fluid collection. Vasculature: Moderate atherosclerotic calcifications of the aorta. Lymph nodes: Unremarkable. No enlarged lymph nodes. Urinary bladder: Unremarkable as visualized. Reproductive: Prostate is enlarged. Bones/joints: Moderate to advanced disc space narrowing at L5-S1. Soft tissues: Small bilateral inguinal hernias. CT/CT kidney stone [id number] IMPRESSION: 1. There is mild left-sided hydronephrosis and hydroureter to the level of a 0.7 cm calculus in the mid to distal ureter approximately 9 cm above the ureterovesical junction. 2. Other findings as above.
--- NOTE | 2025-06-12 19:10 | W.ED.ABDPA2 ---
Documented by User: [email or web address] Guillory 06/12/25 20:42 HPI - Abdominal Pain General: Chief Complaint: Abdominal Pain Stated Complaint: abd pain Time Seen by Provider: 06/12/25 18:58 Source: patient Mode of arrival: ambulatory Limitations: no limitations History of Present Illness: Patient is a 70-year-old male with past medical history of recurrent nephrolithiasis who presents to the emergency department complaining of sudden onset severe left flank pain. States that he has had over 100 kidney stones and that this pain is identical. He does note that they have been so big in the past that he has needed that mechanically removed. Does not report any stents however. He notes that the onset of pain was sudden, described as sharp and 10/10 pain but during my time of examination he states that it recently has ceased. He is asymptomatic at this time. He did note some nausea vomiting earlier as well as getting sweaty, but no fevers or chills recently. No other symptoms to report at this time. No urinary symptoms such as dysuria or hematuria. MD elicited complaint: flank pain Pertinent past history: kidney stones Onset (ago): hour(s) Pain Consistency: now resolved Location: L flank Severity: similar to previous episodes Quality: sharp Radiation: none Associated Symptoms: Reports nausea and vomiting; Denies bloating, change in stool character, chills, constipation, diarrhea, dysuria, fever(s) and hematochezia Related Data Home Medications ?Medication ?Instructions ?Recorded ?Confirmed atorvastatin 40 mg tablet 40 mg PO EVERY OTHER DAY 09/13/20 12/09/24 cetirizine 10 mg capsule (Zyrtec) 10 mg PO DAILY 09/13/20 12/09/24 meloxicam 7.5 mg tablet 7.5 mg PO DAILY 11/25/20 12/09/24 omeprazole magnesium 20 mg 20 mg PO DAILY 11/26/24 12/09/24 tablet,delayed release (Prilosec OTC) metoprolol succinate 50 mg 50 mg PO DAILY 12/09/24 12/09/24 tablet,extended release 24 hr tamsulosin 0.4 mg capsule 0.4 mg PO DAILY 12/09/24 12/09/24 Previous Rx's ?Medication ?Instructions ?Recorded aspirin 81 mg tablet,delayed 81 mg PO DAILY #90 tabs 11/27/20 release Allergies Allergy/AdvReac Type Severity Reaction Status Date / Time No Known Allergies Allergy Verified 06/12/25 18:22 Review of Systems General: Reports: 10 or more systems reviewed and unremarkable except in HPI and below Const: Reports: diaphoresis; Denies: fever(s), chills, change in appetite or change in weight ENMT: Denies: throat pain or hoarseness Card: Denies: chest pain, palpitations or lightheadedness Resp: Denies: dyspnea, productive cough or wheezing GI: Reports: nausea and vomiting; Denies: abdominal pain, diarrhea, constipation, bloating, change in stool character or hematochezia : Reports: flank pain; Denies: difficulty urinating, dysuria, urinary frequency or urinary urgency Musc: Denies: neck pain or back pain Skin/Breast: Denies: rash or new lesions Neuro: Denies: headache(s) or dizziness PFSH ED PFSH: Medical History Hyperlipidemia History of nephrolithiasis Tobacco abuse Chews tobacco Hx of cardiac pacemaker ST elevation myocardial infarction (STEMI) Sick sinus syndrome Essential hypertension Surgical History Hx of lithotripsy Presence of stent in LAD coronary artery Family History Other Hypertension Social History Smoking and tobacco/nicotine status: never used tobacco/nicotine Alcohol intake: never Substance/Drug Use: never Physical Exam Const: COMMON NORMALS: no acute distress, average body habitus, patient oriented x3, no limitations, healthy appearing, alert and well nourished GENERAL APPEARANCE: cooperative and comfortable ORIENTATION/CONSCIOUSNESS: Yes awake Neck/C-Spine: COMMON NORMALS: full ROM, supple and no meningeal signs Resp: COMMON NORMALS: normal respiratory effort, No retractions, No use of accessory muscles and clear to auscultation bilaterally AUSCULTATION: clear to auscultation bilaterally, no crackles, no rales, no rhonchi and no wheezes Cardio: COMMON NORMALS: regular rate, regular rhythm, No gallops present (Cardio), No clicks present (Cardio), No murmurs present (Cardio) and No rub (Cardio) RATE: regular rate RHYTHM: regular rhythm GI: COMMON NORMALS: Normal to inspection, nondistended, normoactive bowel sounds present, Soft to palpation, non-tender and no masses AUSCULTATION: Yes normoactive bowel sounds PALPATION: Yes Soft to palpation and No Guarding due to palpation present (GI) : COMMON NORMALS: Yes no CVA tenderness BLADDER/KIDNEY EXAM: Yes no CVA tenderness Back/Pelvis: COMMON NORMALS: no CVA tenderness Extremity: COMMON NORMALS: normal to inspection and full ROM Neuro: COMMON NORMALS: patient oriented x3, moves all extremities, no focal motor deficits and no sensory deficits noted SENSORIUM/ORIENTATION: Yes alert MENINGEAL SIGNS: Yes no meningeal signs Psych: COMMON NORMALS: mental status grossly normal, cooperative and speech normal SPEECH: Yes normal speech Skin: COMMON NORMALS: no rashes or lesions noted GENERAL SKIN EXAM: no rashes or lesions noted Course Vital Signs: Vital signs: Vital Signs Temperature 98.1 F 06/12/25 18:19 Pulse Rate 62 06/12/25 21:09 Respiratory Rate 20 H 06/12/25 18:19 Blood Pressure 146/88 06/12/25 21:09 Pulse Oximetry 96 06/12/25 21:09 Oxygen Delivery Me thod Room Air 06/12/25 19:24 MDM - Abdominal Pain Medical Decision Making Patient presented to the Emergency Department for evaluation of sudden onset left flank pain, comparable to what he tells me is a kidney stone that he has had greater than 100 total in his lifetime. He had noted nausea and vomiting, as well as diaphoresis, but at my time of examination is completely asymptomatic states the pain is completely gone. At this point he denied wanting any blood work, he was able to give a urine which shows red blood cells consistent with stone. CT scan noncontrast showing mild hydronephrosis and hydroureter where there is associated 7 mm calculus to the mid distal ureter. I informed patient of these findings, he is telling me that he is still not having symptoms and would like to go home. He also tells me he has a urologist that he will follow-up with, I did tell him to return if he has recurrence of pain, onset of fevers, or any other concerning symptoms of infection as this is a urological emergency and he would need prompt evaluation at that time. He endorses understanding, denies need for medications. Lab Data Labs/Radiology: Radiology Impressions Abdomen/Pelvis CT 06/12/25 19:08 IMPRESSION: 1. There is mild left-sided hydronephrosis and hydroureter to the level of a 0.7 cm calculus in the mid to distal ureter approximately 9 cm above the ureterovesical junction. 2. Other findings as above. Laboratory Results Urine Color Yellow (Yellow) 06/12/25 19:06 Urine Appearance Cloudy (CLEAR) A 06/12/25 19:06 Urine pH 5.5 (5-7) 06/12/25 19:06 Ur Specific [place] 1.023 (1.005-1.030) 06/12/25 19:06 Urine Protein 1+ (Negative) A 06/12/25 19:06 Urine Glucose (UA) Negative (Normal) 06/12/25 19:06 Urine Ketones Trace (Negative) 06/12/25 19:06 Urine Blood 3+ (Negative) A 06/12/25 19:06 Urine Nitrate Negative (Negative) 06/12/25 19:06 Urine Bilirubin Negative (Negative) 06/12/25 19:06 Urine Urobilinogen 0.2 mg/dL (Negative) 06/12/25 19:06 Ur Leukocyte Esterase Trace (Negative) A 06/12/25 19:06 Urine RBC >100 /hpf (0-2) H 06/12/25 19:06 Urine WBC 0-4 /hpf (0-5) H 06/12/25 19:06 Ur Squamous Epith Cells 0-4 /hpf (0-5) H 06/12/25 19:06 Amorphous Sediment Not Reportable 06/12/25 19:06 Urine Bacteria Trace /hpf (NONE) 06/12/25 19:06 Urine Mucus 1+ /hpf 06/12/25 19:06 All radiology interpretation(s) finalized by discharge Discharge Plan Discharge Patient Disposition: Home Clinical Impression: Ureterolithiasis Condition: Stable Prescriptions: No Action Zyrtec 10 mg capsule 10 mg PO DAILY atorvastatin 40 mg tablet 40 mg PO EVERY OTHER DAY tamsulosin 0.4 mg capsule 0.4 mg PO DAILY metoprolol succinate 50 mg tablet extended release 24 hr 50 mg PO DAILY omeprazole magnesium [Prilosec OTC] 20 mg tablet,delayed release (DR/EC) 20 mg PO DAILY meloxicam 7.5 mg tablet 7.5 mg PO DAILY aspirin 81 mg Tablet,Delayed Release (Dr/Ec) 81 mg PO DAILY Qty: 90 3RF Discharge Orders: Discharge ED (Routine); Ordered 06/12/25 Ordered By: Dexter Sánchez Referrals: Charles Coleman DO [Primary Care Provider, [facility]] Patient Instructions: Patient Portal & Calin Instructions Activity Restrictions/Additional Instructions: Discharge Instructions: Left Ureteral Stone (Ureterolithiasis) DIAGNOSIS: Left kidney stone (ureterolithiasis) at the ureterovesical junction (where the ureter meets the bladder) WHAT WAS FOUND: You were evaluated in the emergency department for left flank pain. A CT scan showed a 7 mm kidney stone in your left ureter near your bladder. Your urine showed blood, which is expected with a kidney stone, but no signs of infection. Your pain has now resolved. TREATMENT PLAN: You are being discharged home to allow the stone to pass naturally. Based on the size and location of your stone, there is approximately a 50-60% chance it will pass on its own over the next 1-4 weeks. WHAT TO DO AT HOME: Fluids: - Drink plenty of water - aim for at least 2-3 liters (8-12 glasses) per day - This helps flush the stone through your system Pain Management: - Take ibuprofen (Advil, Motrin) 600-800 mg every 6-8 hours as needed for pain, with food - If you cannot take ibuprofen, use acetaminophen (Tylenol) as directed - You may use the pain medication prescribed to you if [id number] medications are not sufficient Strain Your Urine: - Use a urine strainer or coffee filter to catch the stone when you urinate - If you catch the stone, save it in a clean container and bring it to your urology appointment for analysis Activity: - You may resume normal activities as tolerated - Some people find that staying active helps the stone pass WHEN TO RETURN TO THE EMERGENCY DEPARTMENT IMMEDIATELY: Seek emergency care if you develop any of the following: - Fever (temperature over 100.4?F or 38?C) or chills - this could indicate infection, which is a medical emergency with a kidney stone - Severe pain that is not controlled with your medications - Persistent nausea and vomiting that prevents you from keeping down fluids or medications - Inability to urinate or significantly decreased urine output - Blood in urine that is bright red or contains clots - Weakness, dizziness, or feeling very ill FOLLOW-UP CARE: Urology Appointment: - You should schedule an appointment with a urologist within 1-2 weeks - Bring any stones you catch to this appointment - Follow-up imaging may be needed to confirm stone passage or assess if the stone is still present If the stone does not pass: - Stones larger than 7 mm often require intervention such as ureteroscopy or shock wave lithotripsy - Your urologist will discuss treatment options with you if the stone does not pass PREVENTION: - Continue drinking plenty of water daily (goal: at least 2.5 liters per day) - Your urologist may recommend dietary changes or medications to prevent future stones - Given your history of multiple kidney stones, you may benefit from metabolic evaluation to identify risk factors QUESTIONS? If you have questions or concerns before your urology appointment, contact your primary care physician or the urology clinic. Print Language: Russian Coding Level of Care Code ED Silk Snapper for Chg Fwd Documented by User: Epi Escoto DO 06/14/25 10:56 HPI - Abdominal Pain General: Chief Complaint: Abdominal Pain Stated Complaint: abd pain Time Seen by Provider: 06/12/25 18:58 Related Data Home Medications ?Medication ?Instructions ?Recorded ?Confirmed atorvastatin 40 mg tablet 40 mg PO EVERY OTHER DAY 09/13/20 12/09/24 cetirizine 10 mg capsule (Zyrtec) 10 mg PO DAILY 09/13/20 12/09/24 meloxicam 7.5 mg tablet 7.5 mg PO DAILY 11/25/20 12/09/24 omeprazole magnesium 20 mg 20 mg PO DAILY 11/26/24 12/09/24 tablet,delayed release (Prilosec OTC) metoprolol succinate 50 mg 50 mg PO DAILY 12/09/24 12/09/24 tablet,extended release 24 hr tamsulosin 0.4 mg capsule 0.4 mg PO DAILY 12/09/24 12/09/24 Previous Rx's ?Medication ?Instructions ?Recorded aspirin 81 mg tablet,delayed 81 mg PO DAILY #90 tabs 11/27/20 release Allergies Allergy/AdvReac Type Severity Reaction Status Date / Time No Known Allergies Allergy Verified 06/12/25 18:22 PFS ED PFSH: Medical History Hyperlipidemia History of nephrolithiasis Tobacco abuse Chews tobacco Hx of cardiac pacemaker ST elevation myocardial infarction (STEMI) Sick sinus syndrome Essential hypertension Surgical History Hx of lithotripsy Presence of stent in LAD coronary artery Family History Other Hypertension Social History Smoking and tobacco/nicotine status: never used tobacco/nicotine Alcohol intake: never Substance/Drug Use: never Course Vital Signs: Vital signs: Vital Signs Temperature 98.1 F 06/12/25 18:19 Pulse Rate 62 06/12/25 21:09 Respiratory Rate 20 H 06/12/25 18:19 Blood Pressure 146/88 06/12/25 21:09 Pulse Oximetry 96 06/12/25 21:09 Oxygen Delivery Me thod Room Air 06/12/25 19:24 MDM - Abdominal Pain Medical Decision Making Patient presented to the Emergency Department for evaluation of sudden onset left flank pain, comparable to what he tells me is a kidney stone that he has had greater than 100 total in his lifetime. He had noted nausea and vomiting, as well as diaphoresis, but at my time of examination is completely asymptomatic states the pain is completely gone. At this point he denied wanting any blood work, he was able to give a urine which shows red blood cells consistent with stone. CT scan noncontrast showing mild hydronephrosis and hydroureter where there is associated 7 mm calculus to the mid distal ureter. I informed patient of these findings, he is telling me that he is still not having symptoms and would like to go home. He also tells me he has a urologist that he will follow-up with, I did tell him to return if he has recurrence of pain, onset of fevers, or any other concerning symptoms of infection as this is a urological emergency and he would need prompt evaluation at that time. He endorses understanding, denies need for medications. Chart reviewed Lab Data Labs/Radiology: Radiology Impressions Abdomen/Pelvis CT 06/12/25 19:08 IMPRESSION: 1. There is mild left-sided hydronephrosis and hydroureter to the level of a 0.7 cm calculus in the mid to distal ureter approximately 9 cm above the ureterovesical junction. 2. Other findings as above. Laboratory Results Urine Color Yellow (Yellow) 06/12/25 19:06 Urine Appearance Cloudy (CLEAR) A 06/12/25 19:06 Urine pH 5.5 (5-7) 06/12/25 19:06 Ur Specific [place] 1.023 (1.005-1.030) 06/12/25 19:06 Urine Protein 1+ (Negative) A 06/12/25 19:06 Urine Glucose (UA) Negative (Normal) 06/12/25 19:06 Urine Ketones Trace (Negative) 06/12/25 19:06 Urine Blood 3+ (Negative) A 06/12/25 19:06 Urine Nitrate Negative (Negative) 06/12/25 19:06 Urine Bilirubin Negative (Negative) 06/12/25 19:06 Urine Urobilinogen 0.2 mg/dL (Negative) 06/12/25 19:06 Ur Leukocyte Esterase Trace (Negative) A 06/12/25 19:06 Urine RBC >100 /hpf (0-2) H 06/12/25 19:06 Urine WBC 0-4 /hpf (0-5) H 06/12/25 19:06 Ur Squamous Epith Cells 0-4 /hpf (0-5) H 06/12/25 19:06 Amorphous Sediment Not Reportable 06/12/25 19:06 Urine Bacteria Trace /hpf (NONE) 06/12/25 19:06 Urine Mucus 1+ /hpf 06/12/25 19:06 Discharge Plan Discharge Patient Disposition: Home Clinical Impression: Ureterolithiasis Condition: Stable Prescriptions: No Action Zyrtec 10 mg capsule 10 mg PO DAILY atorvastatin 40 mg tablet 40 mg PO EVERY OTHER DAY tamsulosin 0.4 mg capsule 0.4 mg PO DAILY metoprolol succinate 50 mg tablet extended release 24 hr 50 mg PO DAILY omeprazole magnesium [Prilosec OTC] 20 mg tablet,delayed release (DR/EC) 20 mg PO DAILY meloxicam 7.5 mg tablet 7.5 mg PO DAILY aspirin 81 mg Tablet,Delayed Release (Dr/Ec) 81 mg PO DAILY Qty: 90 3RF Discharge Orders: Discharge ED (Routine); Ordered 06/12/25 Ordered By: Dexter Sánchez Referrals: Charles Coleman DO [Primary Care Provider, [facility]] Patient Instructions: Patient Portal & Calin Instructions Activity Restrictions/Additional Instructions: Discharge Instructions: Left Ureteral Stone (Ureterolithiasis) DIAGNOSIS: Left kidney stone (ureterolithiasis) at the ureterovesical junction (where the ureter meets the bladder) WHAT WAS FOUND: You were evaluated in the emergency department for left flank pain. A CT scan showed a 7 mm kidney stone in your left ureter near your bladder. Your urine showed blood, which is expected with a kidney stone, but no signs of infection. Your pain has now resolved. TREATMENT PLAN: You are being discharged home to allow the stone to pass naturally. Based on the size and location of your stone, there is approximately a 50-60% chance it will pass on its own over the next 1-4 weeks. WHAT TO DO AT HOME: Fluids: - Drink plenty of water - aim for at least 2-3 liters (8-12 glasses) per day - This helps flush the stone through your system Pain Management: - Take ibuprofen (Advil, Motrin) 600-800 mg every 6-8 hours as needed for pain, with food - If you cannot take ibuprofen, use acetaminophen (Tylenol) as directed - You may use the pain medication prescribed to you if [id number] medications are not sufficient Strain Your Urine: - Use a urine strainer or coffee filter to catch the stone when you urinate - If you catch the stone, save it in a clean container and bring it to your urology appointment for analysis Activity: - You may resume normal activities as tolerated - Some people find that staying active helps the stone pass WHEN TO RETURN TO THE EMERGENCY DEPARTMENT IMMEDIATELY: Seek emergency care if you develop any of the following: - Fever (temperature over 100.4?F or 38?C) or chills - this could indicate infection, which is a medical emergency with a kidney stone - Severe pain that is not controlled with your medications - Persistent nausea and vomiting that prevents you from keeping down fluids or medications - Inability to urinate or significantly decreased urine output - Blood in urine that is bright red or contains clots - Weakness, dizziness, or feeling very ill FOLLOW-UP CARE: Urology Appointment: - You should schedule an appointment with a urologist within 1-2 weeks - Bring any stones you catch to this appointment - Follow-up imaging may be needed to confirm stone passage or assess if the stone is still present If the stone does not pass: - Stones larger than 7 mm often require intervention such as ureteroscopy or shock wave lithotripsy - Your urologist will discuss treatment options with you if the stone does not pass PREVENTION: - Continue drinking plenty of water daily (goal: at least 2.5 liters per day) - Your urologist may recommend dietary changes or medications to prevent future stones - Given your history of multiple kidney stones, you may benefit from metabolic evaluation to identify risk factors QUESTIONS? If you have questions or concerns before your urology appointment, contact your primary care physician or the urology clinic. Print Language: Russian Coding Level of Care Code ED Silk Snapper for Jordyn Brar
[2025-06-12 19:24] VITALS: BP 165/107; PULSE 87; O2SAT 96
[2025-06-12 19:36] LABS: Glucose Urine UA Negative (Normal); Nitrate Urine Negative (Negative); Specific Gravity, Urine 1.023 (1.005-1.030)
[2025-06-12 20:00] LABS: Add Urine Microscopic? YES
[2025-06-12 21:03] VITALS: BP 146/88; PULSE 62; O2SAT 95
[2025-06-12 21:09] VITALS: BP 146/88; PULSE 62; O2SAT 96
== END 2025-06-12 21:10 | disposition home or self-care (01) ==
PROVIDERS: Emergency Provider Physician Assistant; PCP Electrodiagnostic Medicine
DX: N20.1 Calculus of ureter (principal); Z87.442 Personal history of urinary calculi; E78.5 Hyperlipidemia, unspecified; Z95.0 Presence of cardiac pacemaker; I10 Essential (primary) hypertension; Z79.82 Long term (current) use of aspirin
CPT/HCPCS: 74176; 81001; 87086; 99284